=== PATIENT | male | born 1975 | race Caucasian/White ===

== ENCOUNTER 2021-10-08 14:16 | Emergency (ER) | payer MEDICAID, SELFPAY ==
[2021-10-08 14:53] VITALS: BP 119/76; PULSE 120; RESP 16; TEMP 36.8; O2SAT 95
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
[2021-10-08 15:28] LABS: MANUAL DIFF FLAG NO
[2021-10-08 15:32] LABS: Basophils Percent Auto 0.3 % (0-2); Eosinophils Absolute Auto 0.2 X10*3/uL (0.0-0.4); Eosinophils Percent Auto 1.6 % (0-4); Hematocrit 45.7 % (42.0-52.0); Hemoglobin 15.1 g/dl (14.0-18.0); Imm Gran Abs Auto 0.04 X10*3/uL (0.00-0.03); Imm Gran Pct Auto 0.4 % (0.0-0.4); Lymphocytes Absolute Auto 1.8 X10*3/uL (1.2-4.9); Lymphocytes Percent Auto 18.1 % (20-40); Mean Corpuscular Hemoglobin 29.3 pg (27.0-33.0); Mean Corpuscular Volume 88.7 fL (80.0-98.0); Monocytes Absolute Auto 1.3 X10*3/uL (0.1-1.2); Monocytes Percent Auto 13.6 % (2-11); Neutrophils Absolute Auto 6.5 x10*3/uL (2.0-8.3); Platelet Count 231 X10*3/uL (160-400); Red Blood Count 5.15 X10*6/uL (4.60-5.80); Red Cell Distribution Width 12.2 % (11.0-16.0); White Blood Count 9.9 X10*3/uL (4.8-10.8)
[2021-10-08] MEDS: LORazepam 1 MG TABLET 2 MG PO (15:33)
[2021-10-08] MEDS: Nicotine Polacrilex 2 MG GUM BUCCAL (15:33)
[2021-10-08 15:41] LABS: Appearance Urine CLEAR; Color Urine YELLOW; Glucose Urine UA NEG (NEG); Leukocyte Esterase Urine NEG (NEG); Nitrite Urine NEG (NEG); Specific Gravity - Urine >= 1.030 (1.005-1.025); Urine Blood NEG (NEG); Urine Ketones NEG (NEG); Urine Protein NEG (NEG-TRACE)
[2021-10-08 15:43] LABS: Ethanol < 10 mg/dL
[2021-10-08 15:46] LABS: Alanine Aminotransferase 12 U/L (0-40); Albumin Level 4.5 g/dL (3.5-5.0); Alkaline Phosphatase 66 U/L (39-117); Anion Gap 13 (12-20); Aspartate Amino Transferase 18 U/L (5-37); Bilirubin Total 0.4 mg/dL (0.0-1.0); Blood Urea Nitrogen 20 mg/dL (9-16); Calcium 9.3 mg/dL (8.4-10.2); Carbon Dioxide 25 mmol/L (22-29); Chloride 106 mmol/L (96-108); Creatinine Clr Calc Pharmacy 96.7; Estimated Glomerular Filt Rate > 60; Glucose Random 126 mg/dL (60-115); Sodium 140 mmol/L (135-145)
[2021-10-08 15:47] LABS: Amphetamine Screen Urine Not Detected (Not Detect); Barbiturates, Urine Not Detected (Not Detect); Benzodiazepines Screen Urine Not Detected (Not Detect); Cannabinoid Screen Urine Not Detected (Not Detect); Cocaine Screen Urine Not Detected (Not Detect); Fentanyl, urine Not Detected (Not Detect); Opiate Screen Urine Not Detected (Not Detect); Phencyclidine Screen Urine Not Detected (Not Detect)
[2021-10-08 15:52] LABS: COVID-19 Test Negative (Negative); RBC Urine 0-2 /HPF (0)
[2021-10-08 15:53] LABS: Squamous Epithelial Cell Urine TRACE /LPF
[2021-10-08 15:54] LABS: Bacteria Urine TRACE /LPF
[2021-10-08 20:17] VITALS: BP 113/66; PULSE 81; TEMP 36.5; O2SAT 100
--- NOTE | 2021-10-09 00:45 | PC.NURSE ---
Patient was observed self dialoguing whole evening, refused any offered medication, [facility] called at [phone] spoke RN Nel who notified us that patient had been off his medication for over 2 month, provider updated of new surfaced information.
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
[2021-10-09 06:18] VITALS: BP 143/92; PULSE 103; RESP 18; TEMP 37; O2SAT 98
--- NOTE | 2021-10-09 06:57 | PC.NURSE ---
patient awake and self dialoguing upon this writers arrival to unit, respirations are even and unlabored patient appears in no distress
[2021-10-09] MEDS: Nicotine Polacrilex 2 MG GUM BUCCAL ×2 (07:53→11:50)
--- NOTE | 2021-10-09 09:26 | PC.NURSE ---
client asks to take shower, getting set up for this now.
--- NOTE | 2021-10-09 10:48 | PC.NURSE ---
residence reports history of client being prescribed zyprexa as a prn but patient never took it.
[2021-10-09 12:09] VITALS: BP 120/75; PULSE 91; TEMP 36.3; O2SAT 96
--- NOTE | 2021-10-09 12:39 | MHC.CARE ---
Call to [facility] ([phone]) to arrange patient returning to facility spoke to Nursing supervisor intelligence analyst, Vance. CARE Team advised that patient has been medically cleared, evaluated by a aluminum container tester, determined to not be in need of an inpatient psychiatric admission at this time. Psychiatry is able to weigh in only regarding patient's behavior while here in the hospital. End Finder Forming Department expected to call back.
--- NOTE | 2021-10-09 12:47 | PC.NURSE ---
t/w observed patient pause before entering doorway to go into room (similar seemingly to some dementia type behavior)
--- NOTE | 2021-10-09 12:48 | PC.NURSE ---
client assessed for need?desire for anxiety medication im feeling good after the shower
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
[2021-10-09 15:31] VITALS: BP 104/82; PULSE 92; TEMP 36.8; O2SAT 98
--- NOTE | 2021-10-09 15:47 | MHC.CARE ---
CARE Team faxed clinical assessment and psychiatry notes to [facility]. 3:45 pm Received call from Dickson at facility, information reviewed and they are ready to accept patient back at any time. CARE Team to arrange transportation.
== END 2021-10-09 17:00 ==
PROVIDERS: Emergency Provider Emergency Medicine Emergency Medical Services; PCP Internal Medicine
DX: F41.9 Anxiety disorder, unspecified (principal); Z20.822 Contact with and (suspected) exposure to COVID-19; Z79.899 Other long term (current) drug therapy
CPT/HCPCS: 36415; 80053; 80307; 81001; 82077; 85025; 87635; 99284; 99285

== ENCOUNTER 2021-10-10 12:14 | Emergency (ER) | payer MEDICAID, SELFPAY ==
[2021-10-10 12:22] VITALS: BP 141/69; PULSE 95; RESP 18; TEMP 36.7; O2SAT 95; BMI 24.4
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
[2021-10-10 12:54] LABS: COVID-19 Test Negative (Negative)
[2021-10-10 14:03] VITALS: BP 135/80; PULSE 89; RESP 18; O2SAT 98
[2021-10-10 16:32] VITALS: BP 126/76; PULSE 90; RESP 16; TEMP 37.1; O2SAT 100
--- NOTE | 2021-10-10 16:42 | PC.NURSE ---
since transfer to POD4 pt has been calm, at times talking to himself and making purposless movements with hands. Was cooperative transferringto POD. Has been seen by CARE team. This RN awaits plan of care from care team. Pt is eating and drinking and able to state needs.
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
[2021-10-10 17:21] LABS: Appearance Urine CLEAR; Color Urine STRAW; Glucose Urine UA NEG (NEG); Leukocyte Esterase Urine NEG (NEG); Nitrite Urine NEG (NEG); Specific Gravity - Urine <= 1.005 (1.005-1.025); Urine Blood NEG (NEG); Urine Ketones NEG (NEG); Urine Protein NEG (NEG-TRACE)
[2021-10-10 18:27] LABS: Amphetamine Screen Urine Not Detected (Not Detect); Barbiturates, Urine Not Detected (Not Detect); Benzodiazepines Screen Urine Not Detected (Not Detect); Cannabinoid Screen Urine Not Detected (Not Detect); Cocaine Screen Urine Not Detected (Not Detect); Fentanyl, urine Not Detected (Not Detect); Opiate Screen Urine Not Detected (Not Detect); Phencyclidine Screen Urine Not Detected (Not Detect)
--- NOTE | 2021-10-11 05:50 | PC.NURSE ---
Patient slept through the night, no distress observed/reported, patient while awake does extensive self dialoguing, behavior non concerning at this time, currently not on any medication, patient was assessed by care team, no disposition established yet, will continue to monitor.
[2021-10-11 06:53] VITALS: RESP 20
--- NOTE | 2021-10-11 07:20 | PC.NURSE ---
patient appears to remain asleep at present respirationis are even and unlabored, patient appears in no distress
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
[2021-10-11] MEDS: Nicotine Polacrilex 2 MG GUM BUCCAL (11:45)
[2021-10-11 17:12] VITALS: BP 127/63; PULSE 99; RESP 18; TEMP 36.6; O2SAT 98
[2021-10-12 00:05] VITALS: BP 118/79; PULSE 114; RESP 19; TEMP 36.6; O2SAT 98
--- NOTE | 2021-10-12 06:59 | PC.NURSE ---
Patient slept through the night, no distress observed/reported, patient is a case management case, [facility], VSS, will continue to monitor.
[2021-10-12 07:30] VITALS: RESP 18
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
--- NOTE | 2021-10-12 09:41 | MHC.CM.ED ---
Patient remains in ER. Patient will not be able to return to [facility] until he has been started on anti-psychotic medications. Medication hasn't been started yet. Continue to monitor for d/c needs .
--- NOTE | 2021-10-12 13:08 | PC.NURSE ---
Patient ate lunch continues to respond to internal stimuli. Awaiting placement by case management. Will continue to monitor.
[2021-10-12 15:32] VITALS: BP 116/57; PULSE 88; TEMP 37.1; O2SAT 97
--- NOTE | 2021-10-12 21:11 | PC.NURSE ---
PT continues to self dialogue in room, responding to internal stimuli. PT able to walk out of room and request food and drink in a calm and appropriate manner. PT is redirectable but often tries to provoke others with aggressive movements and behaviors.
--- NOTE | 2021-10-12 21:25 | MHC.CARE ---
Plan for psychiatric consult regarding medication - [facility] aware Pt will not be recommended for [facility] admission. Please reference addendum from CM on 10/11/21.
[2021-10-12 23:19] VITALS: RESP 18
[2021-10-13 07:45] VITALS: RESP 18
--- NOTE | 2021-10-13 09:23 | PHA.MEDREC ---
Pharmacy Consult ? Medication Reconciliation Pharmacy has completed the medication reconciliation.
--- NOTE | 2021-10-13 10:16 | MHC.CM.ED ---
Patient remains in ER. Psych consult has not been documented. New psych meds haven't been ordered. Patient will not be able to get back to [facility] until this is done. Care Team aware and has asked for a psych consult. Continue to monitor for d/c needs.
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
[2021-10-13 19:49] VITALS: RESP 16
[2021-10-14 04:37] VITALS: RESP 16
--- NOTE | 2021-10-14 05:59 | PC.NURSE ---
Patient was up whole evening and night, lying in bed, self dialoguing intensely, preoccupied, refused Vital sign assessment, psych consult ordered for capacity assessment, M5 confirmed receipt of psych consult order, patient refused all offered medication, no update on disposition, patient is case management case, thought content paranoid, will continue to monitor.
--- NOTE | 2021-10-14 09:20 | PC.NURSE ---
pt in and out of room a few times. in room pacing and self-dialoguing, refused breakfast and everything offered by this policy writer sales. pt laying in bed quietly at this time. pt awaiting psych consult for capacity. will continue to monitor.
--- NOTE | 2021-10-14 11:31 | MHC.CM.ED ---
Pt has been cleared for INPT psych needs and can return to [facility] once he starts on antipsychotic meds pending a formal psych consult. Review of EMR notes the order is active for consult. Updated ED provider on above. CM to follow for return to [facility]
--- NOTE | 2021-10-14 13:40 | MHC.CM.PN ---
INFORMED [facility] HAS A COURT DATE FOR GUARDIANSHIP/RUSHING ORDER THIS Thursday10/18/21. THEY ARE REQUESTING ASSISTANCE WITH MED CERT AND CLINICIANS AFFIDAVIT GOLD HAS CALLED [facility] SEVERAL TIMES REQUESTING MEDICAL RECORDS FOR THIS PT. THUS FAR, NO CALLS HAVE BEEN RETURNED AND NO RECORDS HAVE BEEN RECEIVED.
[2021-10-15 06:17] VITALS: RESP 18
--- NOTE | 2021-10-15 06:41 | PC.NURSE ---
Patient slept 3 hours in total, no distress observed/reported, lying in bed, self dialoguing and preoccupied, refused Vital sign assessment, no update on disposition from the case management, effort to get Mancilla order, patient's thought content paranoid, will continue to monitor.
--- NOTE | 2021-10-15 07:24 | PC.NURSE ---
patient appears awake at present, low audble self dialogue chatter, no aggressive behavior presently patient appears in no distress.
--- NOTE | 2021-10-15 10:05 | MHC.CM.ED ---
Patient remains in ER. Anticipate patient will return to [facility] once psych consult is complete and anti-psychotic medications are ordered. Che Durant, director of case management aware. Continue to monitor for d/c needs.
--- NOTE | 2021-10-15 15:17 | MHC.CM.PN ---
This technical document writer and Florence Keller spoke re: plane of care for patient. Plan to complete Clinicians Affidavit for court on Thursday, in hope to obtain Robbin's Order. This technical document writer to [facility] Vance Damon @ [phone], attempted to ask Vance if [facility] would take patient back once Robbin's is obtained- she would not answer the questions and stated that they were very specific regarding the requirements for patient to return . Explained that patient has been in behavioral control while @ [facility], he does not meet any criteria for IPLOC or Medical Admission. Provided phone number for siebel administrator to return phone call.
[2021-10-15 23:29] VITALS: RESP 18
--- NOTE | 2021-10-16 06:12 | PC.NURSE ---
Patient slept through the night, no distress observed/reported, no self dialoguing noted, refused vital assessment as usual, no update on disposition from case management. behavior non concerning at this time, will continue to monitor.
--- NOTE | 2021-10-16 07:18 | PC.NURSE ---
patient appears to remain asleep at present respirations are even and unlabored patient appears in no distress
--- NOTE | 2021-10-17 05:01 | PC.NURSE ---
Patient slept 4 hours up since 244, no distress observed/reported, self dialoguing noted, refused vital assessment as usual, no update on disposition from case management. behavior non concerning at this time, will continue to monitor.
[2021-10-17 05:46] VITALS: RESP 18
--- NOTE | 2021-10-17 07:07 | PC.NURSE ---
patient appears to remain asleep at present respirations are even and unlabored patient appears in no distress
--- NOTE | 2021-10-17 10:40 | MHC.CM.ED ---
Patient remains in ER. Medical certificate completed by JOSE E Alegria and provided to case management office for guardianship/Robbin's order hearing on Wednesday 10/18. Continue to monitor for d/c needs.
[2021-10-17 19:10] VITALS: BP 137/83; PULSE 88; RESP 18; TEMP 36.4; O2SAT 98
[2021-10-18 01:17] VITALS: RESP 17
--- NOTE | 2021-10-18 05:40 | PC.NURSE ---
Patient slept most part of the night, currently sleeping, no distress observed/reported, self dialoguing minimal, VSS, no update on disposition from case management. behavior non concerning at this time, patient has hearing today for Mancilla/guardianship, will continue to monitor.
--- NOTE | 2021-10-18 08:36 | PC.NURSE ---
Sleeping. chest rise noted.
--- NOTE | 2021-10-18 10:02 | PC.NURSE ---
Pt has been calm. Staying in room.
[2021-10-18 14:19] LABS: COVID-19 Test Positive (Negative)
--- NOTE | 2021-10-18 14:38 | PC.NURSE ---
Pt tetsted positive for covid is now on droplet precautions
--- NOTE | 2021-10-18 15:35 | PC.NURSE ---
Patient resting comfortably in bed no c/o pain or sob. Droplet precautions in place awaiting improvement in symptoms.
--- NOTE | 2021-10-18 15:48 | MHC.CM.ED ---
Patient remains in ER. Received notification from Che Durant, showcase trimmer that court day is set for 10/25. She has been in contact with [facility] but has not received confirmation that patient can return. Received notification from pod that patient is now positive for Covid. Che schmitt. Continue to monitor for d/c needs.
--- NOTE | 2021-10-19 06:44 | PC.NURSE ---
Patient slept through the night, no distress observed/reported, no self dialoguing, COVID +, VSS, no update on disposition from case management. behavior non concerning at this time, patient court date 10/25/21 for Mancilla/guardianship, will continue to monitor.
--- NOTE | 2021-10-19 07:07 | PC.NURSE ---
patient appears to remain asleep at present respirations are even and unlabored, patient appears in no distress
[2021-10-20 06:22] VITALS: BP 128/88; PULSE 101; RESP 20; TEMP 36.2; O2SAT 97
--- NOTE | 2021-10-20 07:09 | PC.NURSE ---
patient awake at present respirations are even and unlabored patient appears in no distress declined extra blanket on approach
[2021-10-20 14:38] LABS: COVID-19 Test Negative (Negative)
[2021-10-20 16:18] VITALS: RESP 18
[2021-10-21 06:01] VITALS: RESP 20
--- NOTE | 2021-10-21 06:30 | PC.NURSE ---
Patient slept through the night, no distress observed/reported, behavior appropriate and non concerning, no self dialoguing, elimination intact, covid negative, Court date 10/25/21 for Robbin's order, VSS, will continue to monitor.
--- NOTE | 2021-10-21 07:01 | PC.NURSE ---
patient appears to remain asleep at present respirations are even and unlabored patient appears in no distress
--- NOTE | 2021-10-21 10:10 | MHC.CM.ED ---
Addendum entered by Rhoda England 10/21/21 13:52: Patient received Pfizer vaccines on : 12/28, 01/18 and 09/04. Clinical updates sent to [facility] per their request. Original Note: Patient remains in ER. Covid positive 10/18. Referral broadcasted in [employer] to all facilities within the [facility] that can accept positive Covid patients. 57 referrals made. Continue to monitor for d/c needs.
--- NOTE | 2021-10-22 07:01 | PC.NURSE ---
Patient slept through the night, no distress observed/reported, behavior appropriate and non concerning, no self dialoguing, elimination intact, covid negative, Court date 10/25/21 for Robbin's order, refused VS assessment, will continue to monitor.
--- NOTE | 2021-10-22 07:12 | PC.NURSE ---
patient appears to remain asleep at present respirations are even and unlabored patient appears in no distress
--- NOTE | 2021-10-22 08:27 | MHC.CM.ED ---
Patient remains in ER. Patient is a LTC resident of [facility]. Covid positive 10/18. Court scheduled for 10/25 for guardianship and Robbin's order. 57 Referrals have been broadcasted in Allscripts. No bed offers made. Che Durant, director of case management aware. Continue to monitor for d/c needs.
[2021-10-22 18:40] VITALS: BP 125/73; PULSE 86; TEMP 36.4; O2SAT 95
[2021-10-23 05:12] VITALS: BP 127/84; PULSE 90; RESP 17; TEMP 36.4; O2SAT 100
--- NOTE | 2021-10-23 07:29 | PC.NURSE ---
patient appeared to remain asleep at begin of shift now quietly self dialoguing to self in room. patient appears in no distress.
--- NOTE | 2021-10-23 10:25 | MHC.CM.ED ---
Patient remains in ER. Patient is a resident of [facility]. Court for guardianship and Robbin's order is scheduled for 10/25. On 10/18, patient tested positive for Covid. Referral broadcasted with the [facility] to all facilities that are accepting positive Covid patients. No bed offers made yet. Che Durant aware and has escalated to [facility]. Continue to monitor for d/c needs.
--- NOTE | 2021-10-23 14:36 | MHC.CM.PN ---
This commercial insurance underwriter placed email to Tai Barraza for any follow-up regarding patient case. Awaiting return response. Will continue to follow.
--- NOTE | 2021-10-23 15:35 | PC.NURSE ---
late entry: to note from day shift 10/22/21 patient took a shower mid day and also made his own bed afterwards.
[2021-10-23 15:54] VITALS: BP 118/72; PULSE 83; RESP 18; TEMP 36.8; O2SAT 97
[2021-10-24 05:58] VITALS: BP 135/76; PULSE 88; RESP 12; TEMP 36.7; O2SAT 100
--- NOTE | 2021-10-24 06:33 | PC.NURSE ---
Patient slept through the night, no distress observed/reported, behavior appropriate and non concerning, self dialoguing towards morning, elimination intact, covid negative, Court date 10/25/21 for Robbin's order, VSS, will continue to monitor.
--- NOTE | 2021-10-24 08:30 | PC.NURSE ---
Pt has been awake. SKin pwd, sat up to eat. Self talk when not engaged. Pt able to state needs. Reports that he showered last night. No foul odors in room. Self talk theme for short period is boredom .
[2021-10-24 14:03] VITALS: BP 126/78; PULSE 84; RESP 18; TEMP 36.8; O2SAT 98
[2021-10-24 14:28] LABS: COVID-19 Test Negative (Negative)
--- NOTE | 2021-10-24 16:11 | MHC.CM.ED ---
Patient served with guardianship court date of 10/25/2021.
--- NOTE | 2021-10-24 17:41 | PC.NURSE ---
Pt has kept mostly to his room throughout the day. Has not been incontinent. APpears to request fluids. During brief interactions with this RN patient is able to state needs, denies dyscomfort. Is steady on feet. Self talk at almost all times unless approached by staff. No aggressive or threatening behaviors.
[2021-10-25 03:37] VITALS: BP 141/89; PULSE 111; RESP 16; TEMP 36.1; O2SAT 98
--- NOTE | 2021-10-25 06:18 | PC.NURSE ---
Patient slept through the night, no distress observed/reported, behavior appropriate and non concerning, minima self dialoguing, elimination intact, covid negative, Court date today (10/25/21) for Robbin's order, VSS, will continue to monitor.
--- NOTE | 2021-10-25 08:06 | PC.NURSE ---
pt went to the bathroom w the door open. i shut the door and pt became alittle upset but was able to explain that he was claustrophobic and apologized. I suggested that he partially close the door so that he feels ok and that their is privacy
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
[2021-10-25 15:29] VITALS: BP 136/80; PULSE 91; TEMP 36.8; O2SAT 98
--- NOTE | 2021-10-25 18:35 | PC.NURSE ---
Pt had a shower and ate lunch awaiting results from odalis moreno
[2021-10-25 20:06] VITALS: BP 149/80; PULSE 111; RESP 18; TEMP 36.2; O2SAT 100
[2021-10-26 05:39] VITALS: RESP 18
--- NOTE | 2021-10-26 06:13 | PC.NURSE ---
Patient slept through the night, no self dialoguing, behavior appropriate and non concerning, patient had a court date for Laurent yesterday no update, will continue to monitor.
[2021-10-26 07:28] VITALS: BP 145/75; PULSE 91; RESP 16; TEMP 36.9; O2SAT 97
--- NOTE | 2021-10-26 09:42 | PC.NURSE ---
pt continues to have a conversation with himself. denies any pain/disc. pt states that if he needs us he will let us know.
--- NOTE | 2021-10-26 18:04 | PC.NURSE ---
Patient alert with pleasant confusion. ate 100% of meals this shift awaiting results from meeting yesterday regarding a howe order for patient. No c/o pain or discomfort, will continue to monitor.
[2021-10-27 04:56] VITALS: BP 118/67; PULSE 74; RESP 18; TEMP 36.2; O2SAT 98
--- NOTE | 2021-10-27 06:35 | PC.NURSE ---
PT appears to be sleeping on safety checks. Up once to use the BR and to eat a sandwich. PT self dialogues at times. PT calm and cooperative.
[2021-10-27 16:06] VITALS: BP 150/75; PULSE 86; RESP 16; TEMP 36.8; O2SAT 96
--- NOTE | 2021-10-27 16:46 | PC.NURSE ---
Patient resting comfortably in bed awaiting results from carley mcclure
[2021-10-28 06:38] VITALS: RESP 20
--- NOTE | 2021-10-28 06:41 | PC.NURSE ---
Patient slept through the night, no self dialoguing, behavior appropriate and non concerning, No news on patient's Mancilla order status, Refused VS assessment, will continue to monitor.
--- NOTE | 2021-10-28 07:06 | PC.NURSE ---
patient appears to remain asleep at present respirations are even and unlabored patient appears in no distress
--- NOTE | 2021-10-29 05:56 | PC.NURSE ---
Patient slept through the night, no self dialoguing, behavior appropriate and non concerning, No update on patient's Mancilla order status, VSS, will continue to monitor.
--- NOTE | 2021-10-29 07:10 | PC.NURSE ---
patient appears to remain asleep at present respirations are even and unlabored patient appears in no distress
[2021-10-29 16:48] VITALS: BP 138/80; PULSE 95; RESP 18; TEMP 36.3; O2SAT 100
[2021-10-29] MEDS: Nicotine Polacrilex 2 MG GUM BUCCAL (18:18)
--- NOTE | 2021-10-30 05:59 | PC.NURSE ---
Patient slept through the night, extensive self dialoguing, behavior appropriate and non concerning, No update on patient's Mancilla order status, VSS, will continue to monitor.
[2021-10-30 06:53] VITALS: RESP 20
--- NOTE | 2021-10-30 09:28 | PC.NURSE ---
pt given breakfast. pt has not come out of room since this headline writer arriving on shift, he refused vitals. pt in room self-dialoguing, no issues noted/reported. will continue to monitor.
--- NOTE | 2021-10-30 10:13 | MHC.CM.PN ---
This customs entry writer received communication from state discharge planning team. Patient is still unable to return to [facility] and the team is working on alternate placement. Awaiting guardianship and Robbin's orders from the court. Case Management will continue to follow.
--- NOTE | 2021-10-30 14:20 | MHC.CM.ED ---
Referral made to [facility] at Che Durant's request. Continue to monitor for d/c needs.
[2021-10-30 16:38] VITALS: BP 119/73; PULSE 97; TEMP 36.9; O2SAT 97
--- NOTE | 2021-10-31 06:39 | PC.NURSE ---
Patient slept through the night, behavior appropriate and non concerning, awaiting Mancilla order from the court, VSS, will continue to monitor.
[2021-10-31 06:47] VITALS: BP 105/62; PULSE 80; RESP 17; TEMP 36.6; O2SAT 99
--- NOTE | 2021-10-31 07:17 | PC.NURSE ---
patient appears to remain asleep at present respirations are even and unlabored, patient appears in no distress
[2021-10-31 21:34] VITALS: BP 117/74; PULSE 76; TEMP 36.2; O2SAT 97
--- NOTE | 2021-11-01 06:45 | PC.NURSE ---
PT appeared to be asleep on safety checks, PT calm and cooperative when he woke up for a snack.
--- NOTE | 2021-11-01 11:38 | PC.NURSE ---
Patient awake, dialoguing in room. Briefly assessed, encouraged to use the bathroom and shower, offered to change linens. Patient stated 'can you please close the door, it stinks in here...' and stated he would shower later I shower every day, you can check the notes, please close the door.'
--- NOTE | 2021-11-01 14:40 | PC.NURSE ---
Patient out of bed to shower, linens changed- pt incontinent of urine.
--- NOTE | 2021-11-01 15:31 | MHC.CM.ED ---
Patient remains in ER. No bed offers made yet. Per Che, [facility] will not accept patient back. [facility] has been escalated. Continue to monitor for d/c needs.
--- NOTE | 2021-11-01 18:10 | PC.NURSE ---
PATIENT RESTING COMFORTABLY IN BED AWAITING RUSHING ORDER AND DETERMINATION FOR PLACEMENT, WAS GIVEN A SHOWER AND ROOM WAS CLEANED.
--- NOTE | 2021-11-02 05:58 | PC.NURSE ---
Patient slept through the night, behavior appropriate and non concerning, awaiting Mancilla order from the court, patient is now case management bed search, VSS, will continue to monitor.
[2021-11-02 06:18] VITALS: BP 117/62; PULSE 74; RESP 18; TEMP 36.4; O2SAT 98
--- NOTE | 2021-11-02 07:13 | PC.NURSE ---
patient appears to remain asleep at present respirations are even and unlabored patient appears in no distress
[2021-11-02 15:44] VITALS: BP 132/90; PULSE 87; RESP 18; TEMP 36.6; O2SAT 99
--- NOTE | 2021-11-03 06:14 | PC.NURSE ---
Patient slept through the night, behavior appropriate and non concerning, awaiting Mancilla order from the court, patient is now case management bed search, refused VS assessment, will continue to monitor.
--- NOTE | 2021-11-03 07:19 | PC.NURSE ---
patient appears to remain asleep at present respirations are even and unlabored patient appears in no distress
[2021-11-03 17:01] VITALS: BP 118/78; PULSE 69; RESP 20; TEMP 36.5; O2SAT 97
[2021-11-04 00:59] VITALS: BP 152/98; PULSE 75; RESP 20; TEMP 36.5; O2SAT 97
--- NOTE | 2021-11-04 07:05 | PC.NURSE ---
patient awake at present, calling out periodically, declined breakfast, respirations even and unlabored patient appears in no distress, primarily remains in room of his own accord.
--- NOTE | 2021-11-04 10:22 | MHC.CM.ED ---
Patient remains in the ER. Denied by [facility]. Referral sent to [facility], [facility] and Richard Johansen at [facility]'s recommendation. Continue to monitor for d/c needs.
[2021-11-04 15:57] VITALS: BP 127/84; PULSE 91; RESP 16; TEMP 36.6; O2SAT 99
[2021-11-05 06:18] VITALS: RESP 17
--- NOTE | 2021-11-05 07:12 | PC.NURSE ---
patient appears to mreain asleep at present respirations are even and unlabored patient appears in no distress
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
[2021-11-06 06:32] VITALS: BP 136/83; PULSE 97; RESP 20; TEMP 36.2; O2SAT 97
--- NOTE | 2021-11-06 07:00 | PC.NURSE ---
Patient slept through the night, behavior escalating, actively responding to internal stimuli, Mancilla order in place, case management bed search, VSS, will continue to monitor.
--- NOTE | 2021-11-06 07:27 | PC.NURSE ---
patient appears to remain asleep at present respirations are even and unlabored patient appears in no distress
--- NOTE | 2021-11-06 08:49 | MHC.CM.ED ---
Addendum entered by Rhoda England 11/06/21 09:01: Clinical updates sent to [facility], per their request. Original Note: Patient remains in ER. [facility] is sceheduled to have a meeting with [facility] today. T/W spoke elizabeth Morales at [facility]. Carmen confirmed they have received all of the clinical info sent by [facility]. Continue to monitor for d/c needs.
[2021-11-06] MEDS: Nicotine Polacrilex 2 MG GUM BUCCAL (16:39)
[2021-11-06 17:06] VITALS: BP 117/69; PULSE 86; RESP 18; TEMP 36.1; O2SAT 97
--- NOTE | 2021-11-07 05:12 | PC.NURSE ---
Patient slept through the night, behavior calm this shift, no self dialoguing, Laurent order in place, case management bed search, VSS, will continue to monitor.
[2021-11-07 05:53] VITALS: BP 139/83; PULSE 102; RESP 20; TEMP 36.9; O2SAT 98
--- NOTE | 2021-11-07 15:01 | MHC.CM.ED ---
Patient remains in ER. Che has not heard from [facility] about meeting with [facility]. T/W spoke with [facility] liasion, Yahaira. Yahaira is waiting to hear from the building to see if they will accept patient back. Continue to monitor for d/c needs.
--- NOTE | 2021-11-07 18:29 | PC.NURSE ---
Patient refused vital signs, states he is meditating and not to bother him. States he will allow vital signs after he is done meditating and using restroom.
--- NOTE | 2021-11-08 05:22 | PC.NURSE ---
Patient slept through the night, no distress observed/reported, less self dialoguing, expressing need well, case management actively searching bed, showered in the evening, VSS, will continue to monitor.
[2021-11-08 06:16] VITALS: RESP 20
--- NOTE | 2021-11-08 08:39 | PC.NURSE ---
this technical writer assumed care of pt at 0700. breakfast given but pt did not eat. pt sleeping, no issues noted/reported. will continue to monitor.
--- NOTE | 2021-11-08 11:15 | MHC.CM.ED ---
[facility] inquiring on antipsychotic medications for pt: pt is not actively on any : nursing documentation supports non concerning behaviors. Information relayed to Yahaira at [facility]: awaiting further communication from facility
--- NOTE | 2021-11-08 12:06 | PC.NURSE ---
pt in room resting quietly. no incidents noted/reported. will continue to monitor.
--- NOTE | 2021-11-08 15:06 | MHC.CM.ED ---
Correspondence with Yahaira at [facility]: Yahaira inquiring on pt's initiation of anti psychotic meds now that he has a Mancilla order: pt not on any per MAR and upon review of RN notes, pt has not exhibited adverse behaviors that necessitated initiation of such meds. Awaiting [facility]'s determination on accepting pt back. CM Director aware of situation.
--- NOTE | 2021-11-09 06:03 | PC.NURSE ---
Patient slept through the night, no distress observed/reported, less self dialoguing, expressing need well, case management actively searching bed, VSS, will continue to monitor
--- NOTE | 2021-11-09 11:21 | PC.NURSE ---
PATIENT RESTING IN ROOM DENIES ANY PAIN OR DISCOMFORT AT THIS TIME. AWAITING CASE MANAGEMENT
[2021-11-09 15:40] VITALS: BP 119/74; PULSE 73; RESP 15; TEMP 36.2; O2SAT 99
[2021-11-10 00:53] VITALS: BP 131/74; PULSE 100; RESP 20; TEMP 36.7; O2SAT 95
--- NOTE | 2021-11-10 05:04 | PC.NURSE ---
Patient slept through the night, no distress observed/reported, self dialoguing, expressing need well, showered during overnight shift bladder accident, case management actively searching bed, VSS, will continue to monitor
--- NOTE | 2021-11-10 10:27 | PC.NURSE ---
Pt in and out of room today. Talking to internal stimuli. Pt not aggressive towards staff and requests things appropriately. Pt resting in bed in room. no apparent distress noted.
--- NOTE | 2021-11-10 13:18 | PC.NURSE ---
PATIENT ALERT AND COOPERATIVE CONTINUES TO RESPOND TO INTERNAL STIMULI. AWAITING PLACEMENT
[2021-11-10 15:33] VITALS: BP 138/94; PULSE 94; RESP 16; TEMP 36.5; O2SAT 97
--- NOTE | 2021-11-11 06:55 | PC.NURSE ---
Patient slept through the night, no distress observed/reported, no self dialoguing, expressing need well, case management actively searching bed, VSS, will continue to monitor
--- NOTE | 2021-11-11 10:14 | MHC.CM.ED ---
Inquiry to [facility] via [employer] re: pt's ability to return to facility now that the Mancilla order is available for use should they deem it necessary. Pt has not been started on antipsychotic meds as his behaviors have been controlled or easily mitigated without medications. Awaiting response from [facility]
[2021-11-11 17:36] VITALS: BP 112/74; PULSE 78; RESP 18; TEMP 36.3; O2SAT 97
[2021-11-12 01:13] VITALS: RESP 20; TEMP 36.4; O2SAT 98
[2021-11-12] MEDS: Nicotine Polacrilex 2 MG GUM BUCCAL (04:25)
--- NOTE | 2021-11-12 06:42 | PC.NURSE ---
Patient slept through the night, no distress observed/reported, no self dialoguing, expressing need well, case management actively searching bed, PRN Olanzapine offered but patient refused, VSS, will continue to monitor
--- NOTE | 2021-11-12 07:15 | PC.NURSE ---
patient appears to remain asleep at [facility] respirations are even and unlabored patrient appears in no distress
--- NOTE | 2021-11-12 09:36 | MHC.CM.ED ---
Addendum entered by Rhoda England 11/12/21 12:29: Benji will be on-site until 3-4ish. Original Note: Patient remains in ER. Per [facility]air[facility] liaison, Benji will be on site to visit patient today. Continue to monitor for d/c needs.
--- NOTE | 2021-11-12 16:23 | MHC.CM.ED ---
Benji from [facility] on site to visit patient. Benji met with case management and January of Care team. Benji is concerned that patient is not stable because of increased internal stimuli. Benji is also concerned that patient has a Robbin's order but no medication has been ordered. January will reach out to [employer] school psychologist to discuss concerns. Continue to monitor for d/c needs,
--- NOTE | 2021-11-12 21:02 | PC.NURSE ---
Patient refused medication with three attempts
--- NOTE | 2021-11-13 06:11 | PC.NURSE ---
Patient slept through the night, no distress observed/reported, no self dialoguing, expressing need well, case management actively searching bed, Refused scheduled Olanzapine, behavior in good control, VSS, will continue to monitor
--- NOTE | 2021-11-13 07:09 | PC.NURSE ---
patient appears to remain asleep at present respirations are even and unalbored patient appears in no distress
[2021-11-14 06:26] VITALS: BP 125/72; PULSE 91; TEMP 36.6; O2SAT 98
--- NOTE | 2021-11-14 06:37 | PC.NURSE ---
Patient slept well, no distress observed/reported, patient's medication now changed to Resperidone 1 mg BID, patient as usual refused to take his medication, behavior at baseline line, patient is case management bed search, will continue to monitor.
--- NOTE | 2021-11-14 07:09 | PC.NURSE ---
patient appears to remain asleep at present respirations are even and unlabored patient appears in no distress
--- NOTE | 2021-11-14 08:57 | PC.NURSE ---
sent message to josh in regards to backup order for med noncompliance
[2021-11-14] MEDS: Nicotine Polacrilex 2 MG GUM BUCCAL (11:29)
--- NOTE | 2021-11-15 06:25 | PC.NURSE ---
Patient slept well, no distress observed/reported, Refused HS Resperidone 1 mg, behavior at baseline line and non concerning at this time, refused VS assessment, patient is case management bed search, will continue to monitor.
--- NOTE | 2021-11-15 14:24 | MHC.CM.ED ---
Patient remains in ER. Risperidal is ordered but patient has refused PO. Che Durant, director of casework department aware. [facility] has not accepted patient back at this time. Continue to monitor for d/c needs.
--- NOTE | 2021-11-15 16:09 | PC.NURSE ---
Attempted x 2 to give meds to patient. Patient refused x 2.
[2021-11-15 21:33] VITALS: BP 137/82; PULSE 97; RESP 16; TEMP 36.6; O2SAT 100
[2021-11-16 05:54] VITALS: RESP 16
--- NOTE | 2021-11-16 06:30 | PC.NURSE ---
Patient slept well, no distress observed/reported, Refused HS Resperidone 1 mg again despite three attempts, behavior at baseline line and non concerning at this time, refused VS assessment, patient is case management bed search, will continue to monitor.
--- NOTE | 2021-11-16 06:55 | PC.NURSE ---
patient appears to remain asleep at present respirations are even and unlabored, patient appears in no distress
[2021-11-16] MEDS: Nicotine Polacrilex 2 MG GUM BUCCAL (09:20)
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
[2021-11-16] MEDS: LORazepam 1 MG TABLET PO (17:34)
--- NOTE | 2021-11-16 18:50 | PC.NURSE ---
late entry: patient was interviewed by Dr. Jerome in regards to med regimen to stabilize patients psychotic symptoms. provider indicated to me patient had made statements to him, you can read my mind and elephants and mice go to heaven . during pt interview laurie states that client had told Airam that he had been on risperdal before (patient was asked risperdal and risperidone) and client stated he hadnt. it seems (from what dr jerome said) that with this discrepancy starting client on local intermodal truck driver injectable (like consta) would not be prudent at this time. later in the afternoon patient seemed more stimulated than recent behavior and t/w asked client about interest in ativan to help him feel calmer. client stated he would like this and a onetime order was pursued from covering provider Caitlin Brink.
[2021-11-17 01:40] VITALS: BP 146/84; PULSE 91; RESP 17; TEMP 36.6; O2SAT 95
--- NOTE | 2021-11-17 05:16 | PC.NURSE ---
Patient slept total seven hours, no distress observed/reported, compliant with vital sign assessment, refused to take his HS risperidone as usual, expressing need well, thought process coherent, engages in extensive self dialoguing when awake and alone in his room, behavior non concerning at this time, had one episode bladder incontinence, patient showered independently, disposition is case management bed search, will continue to monitor.
--- NOTE | 2021-11-17 07:06 | PC.NURSE ---
patient appears to remain asleep at present respirations are even and unlabored, patient appears in no distress
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
--- NOTE | 2021-11-17 13:03 | PC.NURSE ---
patient maintains safe behavior, when awake self dialoguing in his room/bed with periodic moments of laughter.
[2021-11-17 21:49] VITALS: BP 124/79; PULSE 87; RESP 18; TEMP 36.1; O2SAT 97
--- NOTE | 2021-11-18 05:05 | PC.NURSE ---
Patient slept through the night, no distress observed/reported, patient refused his bedtime Risperidone as usual, stated medication makes him drowsy, refused vital assessment, out of room times one refreshed/snacked back to his room, behavior at base line coherent, non concerning, no self dialoguing during overnight shift, expressing need well, will continue to monitor.
[2021-11-18 07:52] VITALS: BP 139/77; PULSE 79; RESP 16; TEMP 36.2; O2SAT 100
--- NOTE | 2021-11-18 09:30 | MHC.CM.ED ---
Patient remains in ER. Meeting planned for 11am today with [facility], [facility] and [facility] to discuss plan for discharge. Continue to monitor for d/c needs.
--- NOTE | 2021-11-18 10:42 | PC.NURSE ---
pt is a/o no sob/dionicio noted. pt has adamantly refused his am med. pt states that if he takes his med he will not be able to meditate pt at times appears to express manic thoughts/rambling.
--- NOTE | 2021-11-18 11:24 | PC.NURSE ---
pt took a long shower, pt's room was cleaned by housekeeping (floor cleansed and bed lining changed).
[2021-11-19 05:42] VITALS: RESP 20
--- NOTE | 2021-11-19 06:02 | PC.NURSE ---
Patient slept through the night, no distress observed/reported, patient refused his bedtime Risperidone as usual, refused vital assessment, behavior at base line coherent, non concerning, no self dialoguing during overnight shift, expressing need well, will continue to monitor.
--- NOTE | 2021-11-19 07:06 | PC.NURSE ---
patient appears to remain asleep at present respirations are even and unlabored patient appears in no distress
--- NOTE | 2021-11-19 11:44 | PC.NURSE ---
patient asked appropriate questions regarding purpose of risperdal. t/w told him it was for if he felt suspicious or agitated. patient requested clarification on what suspicious meant and I gave clarification on that. patient also requested ativan and i told him i would pursue that if he were looking for it.
--- NOTE | 2021-11-19 11:46 | MHC.CM.ED ---
Addendum entered by Rhoda England 11/19/21 15:49: [facility] is not able to offer a bed. Original Note: Patient remains in ER. Meeting with [facility], [facility] and [facility] was done via telephone on 11/18. [facility] does not feel he is stable enough to return. Patient has not been exhibiting any behaviors while in ER. [facility] is still trying to pursue [facility] for placement. [facility] leadership is aware. Referral resent to [facility] at Che Durant's request. Continue to monitor for d/c needs.
--- NOTE | 2021-11-20 06:39 | PC.NURSE ---
Patient slept through the night, no distress observed/reported, patient refused his bedtime Risperidone as usual, refused vital assessment, behavior at base line coherent, non concerning, no self dialoguing, will continue to monitor.
--- NOTE | 2021-11-20 07:23 | PC.NURSE ---
patient appears to remain asleep at present respirations are even and unlabored patient appears in no distress
--- NOTE | 2021-11-20 08:41 | MHC.CM.ED ---
Patient remains in ER pod. No placement options at this time. [facility], [facility] and [facility] trying to find appropriate d/c plan. None available at this time. Continue to monitor for d/c needs.
[2021-11-20] MEDS: Nicotine Polacrilex 2 MG GUM BUCCAL ×2 (12:19→17:14)
[2021-11-20 15:35] VITALS: BP 147/80; PULSE 93; RESP 20; TEMP 36.1; O2SAT 98
[2021-11-21 05:07] VITALS: RESP 18
--- NOTE | 2021-11-21 06:00 | PC.NURSE ---
Patient slept through the night, no distress observed/reported, patient refused his bedtime Risperidone as usual, refused vital assessment, behavior at base line coherent, non concerning, patient did brief self dialoguing, no update on bed search, will continue to monitor.
--- NOTE | 2021-11-21 09:26 | PC.NURSE ---
pt refused am medication/vitals, inappropriate urination in room/bathroom, periodic erratic behaviour, when staff enters pt room he becomes agitated/aggressive.
--- NOTE | 2021-11-21 14:38 | MHC.CM.PN ---
Multidisciplinary meeting held with care team @ [facility]. [facility] obtained records from [facility]. At this time plan is for care team to have discussion with patient around importance of taking prescribed antipsychotics. [facility] will also engage in follow-up meeting with [facility] re: next step plans. This check writer will make additional attempts to contact guardian. Will continue to monitor.
--- NOTE | 2021-11-22 06:33 | PC.NURSE ---
Patient slept through the night, no distress observed/reported, patient refused his bedtime Risperidone, refused vital assessment, behavior at base line coherent, non concerning, no self dialoguing, no update on bed search, will continue to monitor.
--- NOTE | 2021-11-22 07:15 | PC.NURSE ---
patient appears to remain at rest at present respirations are evn and unlabored patient appears in no distress
--- NOTE | 2021-11-22 15:24 | PC.NURSE ---
DR. Villalobos came in to see patient with care team no new orders at this time
[2021-11-22] MEDS: risperiDONE 0.5 MG TABLET PO (18:09)
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
[2021-11-22 21:09] VITALS: BP 145/77; PULSE 116; RESP 17; O2SAT 98
--- NOTE | 2021-11-23 06:16 | PC.NURSE ---
Patient slept through the night, no distress observed/reported, refused vital assessment, behavior at base line, coherent, non concerning, no self dialoguing, no update on bed search from case management, expressing need well, appetite good, Robbin's order copy in chart, Respridone order changed from 1 mg BID to 0.5 mg daily with january crush order from Dr. Bautista, will continue to monitor.
[2021-11-23 06:36] VITALS: BP 130/76; PULSE 78; RESP 18; O2SAT 97
--- NOTE | 2021-11-23 10:52 | PC.NURSE ---
Patient ate breakfast and room was cleaned. alert and cooperative with no c/o at this time. will continue to monitor.
[2021-11-23] MEDS: Nicotine Polacrilex 2 MG GUM BUCCAL (17:41)
[2021-11-23] MEDS: risperiDONE 0.5 MG TABLET PO (18:12)
[2021-11-23 19:24] VITALS: BP 123/81; PULSE 107; RESP 20; TEMP 36.6; O2SAT 97
--- NOTE | 2021-11-24 05:52 | PC.NURSE ---
Patient slept through the night, no distress observed/reported, refused vital assessment, behavior pleasant and appropriate, coherent, no self dialoguing, no update on bed search from case management, expressing need well, appetite good, will continue to monitor.
[2021-11-24 13:45] VITALS: BP 108/57; PULSE 86; RESP 15; TEMP 36.8; O2SAT 99
[2021-11-24 13:50] LABS: MANUAL DIFF FLAG NO
[2021-11-24 13:55] LABS: Basophils Percent Auto 0.3 % (0-2); Eosinophils Absolute Auto 0.3 X10*3/uL (0.0-0.4); Eosinophils Percent Auto 4.7 % (0-4); Hematocrit 45.2 % (42.0-52.0); Hemoglobin 14.8 g/dl (14.0-18.0); Imm Gran Abs Auto 0.02 X10*3/uL (0.00-0.03); Imm Gran Pct Auto 0.3 % (0.0-0.4); Lymphocytes Absolute Auto 2.1 X10*3/uL (1.2-4.9); Lymphocytes Percent Auto 30.4 % (20-40); Mean Corpuscular HGB Conc 32.7 g/dl (31.0-36.0); Mean Corpuscular Hemoglobin 28.8 pg (27.0-33.0); Mean Corpuscular Volume 88.1 fL (80.0-98.0); Monocytes Absolute Auto 0.9 X10*3/uL (0.1-1.2); Monocytes Percent Auto 13.2 % (2-11); Neutrophils Absolute Auto 3.6 x10*3/uL (2.0-8.3); Neutrophils Percent Auto 51.1 % (45-73); Platelet Count 206 X10*3/uL (160-400); Red Blood Count 5.13 X10*6/uL (4.60-5.80); Red Cell Distribution Width 12.7 % (11.0-16.0)
[2021-11-24 15:32] LABS: Alanine Aminotransferase 20 U/L (0-40); Albumin Level 4.2 g/dL (3.5-5.0); Alkaline Phosphatase 65 U/L (39-117); Anion Gap 14 (12-20); Aspartate Amino Transferase 17 U/L (5-37); Bilirubin Total 0.5 mg/dL (0.0-1.0); Blood Urea Nitrogen 16 mg/dL (9-16); Calcium 9.4 mg/dL (8.4-10.2); Carbon Dioxide 25 mmol/L (22-29); Chloride 106 mmol/L (96-108); Creatinine Clr Calc Pharmacy 103.2; Estimated Glomerular Filt Rate > 60; Glucose Random 89 mg/dL (60-115); Magnesium 2.2 mg/dL (1.6-2.6); Potassium 4.9 mmol/L (3.3-5.1); Sodium 140 mmol/L (135-145); Total Protein 7.2 g/dL (6.5-8.0)
[2021-11-24 16:58] LABS: Appearance Urine CLEAR; Color Urine STRAW; Glucose Urine UA NEG (NEG); Leukocyte Esterase Urine NEG (NEG); Nitrite Urine NEG (NEG); Urine Blood NEG (NEG); Urine Ketones NEG (NEG); Urine Protein NEG (NEG-TRACE)
[2021-11-24 17:29] LABS: Amphetamine Screen Urine Not Detected (Not Detect); Barbiturates, Urine Not Detected (Not Detect); Benzodiazepines Screen Urine Not Detected (Not Detect); Cannabinoid Screen Urine Not Detected (Not Detect); Cocaine Screen Urine Not Detected (Not Detect); Fentanyl, urine Not Detected (Not Detect); Opiate Screen Urine Not Detected (Not Detect); Phencyclidine Screen Urine Not Detected (Not Detect)
[2021-11-24] MEDS: risperiDONE 0.5 MG TABLET PO (18:24)
[2021-11-25 05:41] VITALS: RESP 16
--- NOTE | 2021-11-25 06:40 | PC.NURSE ---
Patient slept through the night, no distress observed/reported, refused vital assessment, behavior restless towards morning, coherent but thought content paranoid, self dialoguing, no update on bed search from case management, expressing need well, appetite good, will continue to monitor.
--- NOTE | 2021-11-25 07:28 | PC.NURSE ---
patient appaears to remain relaxed at present has been awake since arrival to unit making some undecipherable sounds as is his regular pattern in early childhood associate, respirations even and unlabored patient appears in no distress
--- NOTE | 2021-11-25 08:38 | MHC.CM.ED ---
Patient remains in ER. Was seen by Dr Villalobos of psych on 11/22. Risperidal 0.5mg po was ordered daily at dinner time. At this time, patient has taken 3 doses. Continue to monitor for d/c needs.
[2021-11-25 17:01] VITALS: RESP 18
[2021-11-25] MEDS: risperiDONE 0.5 MG TABLET PO (18:26)
[2021-11-25 23:39] VITALS: BP 120/58; PULSE 110; RESP 16; O2SAT 96
--- NOTE | 2021-11-26 06:35 | PC.NURSE ---
Patient slept through the night, no distress observed/reported, compliant with vital assessment, behavior non concerning, no self dialoguing, no update on bed search from case management, expressing need well, appetite good, Risperidone 1 mg BID is new order, changed to will continue to monitor.
[2021-11-26] MEDS: Nicotine Polacrilex 2 MG GUM BUCCAL (07:30)
--- NOTE | 2021-11-26 07:35 | PC.NURSE ---
patient appears to remain asleep at present respirations are even and unlabored patient appears in no distress
--- NOTE | 2021-11-26 10:21 | MHC.CM.PN ---
This advertising copy writer spoke with patient's guardian, Anabella Schultz. Updated her regarding patient's current plan of care. She is in agreement. Will continue to update Anabella with any new updates.
--- NOTE | 2021-11-26 10:38 | MHC.CM.ED ---
Patient remains in ER pod. Risperdal was increased to 1mg BID on 11/26. Patient has been compliant with this med at this time. Continue to monitor for d/c needs.
--- NOTE | 2021-11-26 11:35 | PC.NURSE ---
patient declined med when approached. prior to approach this client stated i dont like that med makes me feel depressed clients med put in a sandwich per order, client has requested no food as yet today.
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
[2021-11-26] MEDS: risperiDONE 1 MG TABLET PO ×2 (14:29→18:18)
--- NOTE | 2021-11-26 14:34 | PC.NURSE ---
client consumed sandwich with risperdal in it per order.
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
--- NOTE | 2021-11-27 06:37 | PC.NURSE ---
Patient slept through the night, no distress observed/reported, non compliant with vital assessment, behavior non concerning, no self dialoguing, no update on bed search from case management, expressing need well, appetite good, will continue to monitor.
--- NOTE | 2021-11-27 07:22 | PC.NURSE ---
patient appears to remain asleep at present respirations are evn and unlabored patient appears in no distress
--- NOTE | 2021-11-27 15:03 | PC.NURSE ---
patient has not taken or requested any foods as yet today, unable to medicate patient
[2021-11-27] MEDS: risperiDONE 1 MG TABLET PO ×2 (16:55→18:25)
--- NOTE | 2021-11-27 17:01 | PC.NURSE ---
discussed dosing scheduling with BHARGAV provider for currently. did administer one dose within the last hour and will endeavor to give second dose in/with dinner, should be about 1820 today.
[2021-11-27 21:13] VITALS: BP 119/82; PULSE 91; RESP 17; TEMP 36.6; O2SAT 99
--- NOTE | 2021-11-28 05:53 | PC.NURSE ---
Patient slept through the night, no distress observed/reported, non compliant with vital assessment, behavior non concerning, patient had a brief episode of self dialoguing in the evening but was quiet overnight, no update on bed search from case management, expressing need well, appetite good, will continue to monitor.
--- NOTE | 2021-11-28 07:08 | PC.NURSE ---
Care assumed at this time, report from Nikolas CORMIER. Pt sleeping at this time, resp reg and even, NAD.
--- NOTE | 2021-11-28 08:38 | MHC.CM.ED ---
Addendum entered by Rhoda England 11/28/21 08:42: Risperdal was increased on 11/26. Original Note: Patient remains in ER BH pod. Rispderal was increased to 1mg PO twice a day. It is scheduled for 730am and 530pm. Patient has received 2 doses a day since then. But not necessarily at the scheduled times. There is a daily PRN Risperdal order as well. No PRN Rispdeal has been given. There is a tentative plan to start injections of a long acting medication on Thursday. [facility], [facility] and [facility] leadership continues to be in communication about d/c plan. Continue to monitor for d/c needs.
--- NOTE | 2021-11-28 15:39 | PC.NURSE ---
Pt requesting shower, provided with shower supplies.
--- NOTE | 2021-11-28 15:46 | PC.NURSE ---
Pt noted to be vigorously self dialoguing at this time. Pt moved his bowels on shower floor.
[2021-11-28 16:56] VITALS: BP 157/92; PULSE 113; RESP 20; TEMP 37.2; O2SAT 96
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
--- NOTE | 2021-11-28 18:18 | MHC.CM.ED ---
Per Che Durant-Plan of care includes:1. Pt to receive an IM long acting medication on Thursday. 2. A collaborative meeting with , [facility] and [facility] on Thursday. 3. Expect on site visit from [facility] on Thursday at [facility] to evaluate the patient.4. Possible return to [facility]. Senior management aware. CM will continue to follow.
[2021-11-28] MEDS: risperiDONE 1 MG TABLET PO ×2 (21:01→21:02)
[2021-11-29 05:13] VITALS: BP 147/86; PULSE 100; RESP 20; O2SAT 97
--- NOTE | 2021-11-29 06:26 | PC.NURSE ---
Patient slept through the night, no distress observed/reported, compliant with vital assessment, behavior non concerning, self dialoguing in the morning, no update on bed search from case management, expressing need well, appetite good, PRN Risperidone 1 mg administered as ordered at 2102, will continue to monitor.
[2021-11-29] MEDS: risperiDONE 1 MG TABLET PO (07:12)
[2021-11-29 09:04] VITALS: RESP 18
--- NOTE | 2021-11-29 12:25 | PC.NURSE ---
Plan for male nurse later to give scheduled injection, pt interacts better with males and t/w feels to give the med now would turn into a physical and possibly chemical restraint. Plan ok'd by smelter charger.
[2021-11-29] MEDS: LORazepam 2 MG/ML VIAL IM (14:05)
[2021-11-29] MEDS: Haloperidol Lactate 5 MG/ML VIAL IM (14:05)
[2021-11-29] MEDS: Paliperidone Palmitate 234 MG/1.5 ML SYRINGE IM (14:14)
--- NOTE | 2021-11-29 14:14 | PC.NURSE ---
This health underwriter present for Invega administration. Pt again informed of medication use, intent, schedule. Pt repeated, Ok, so I will take this today and then I will get in again in one month? Staff affirmed. Pt pleasantly and calmly then replied, Ok, sure. I will take it now, go ahead and lifted his sleeve, offering his (L) arm for the injection.
[2021-11-29 14:20] VITALS: RESP 15
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
--- NOTE | 2021-11-29 14:21 | PC.NURSE ---
Late entry: Per nursing leadership, pt to receive invega as soon as possible. Team of nursing staff, ancillary staff, and security, along with Dr. Villalobos assembled to make medicating patient as non-traumatic as possible. Pt received ativan and haldol IM as charted for threatening behaviors, and aggression to facilitate patient and staff safety. Pt required hold to give medications. Pt then willingly accepted the invega injection 10 minutes later with no hold required. No staff were injured during the process, pt bethany well and did not sustain any injuries. Plan for security to remain on standby for short time should any refractory agression occur. Currently patient is in bed resting quietly with eyes closed, resp reg and even, NAD.
[2021-11-29 14:35] VITALS: RESP 14
--- NOTE | 2021-11-29 14:37 | MHC.CM.ED ---
Patient remains in ER pod. Received Invega 234mg IM at 14:14. Collaborative meeting arranged for Thursday with [facility], [facility] and [facility] leadership. Continue to monitor for d/c needs.
[2021-11-29 14:50] VITALS: RESP 14
[2021-11-30 05:33] VITALS: RESP 16
--- NOTE | 2021-11-30 06:25 | PC.NURSE ---
Patient slept through whole evening and the night, patient was s/p chemical restraint, no negative effect, no distress observed/reported, patient showered at 0620, mood pleasant at this time, will continue to monitor.
--- NOTE | 2021-11-30 07:42 | PC.NURSE ---
patient appears to remain at rest at present respirations are even and unlabored patient appears in no distress
--- NOTE | 2021-11-30 12:44 | PC.NURSE ---
client napped lengthily this morning, spoke in seemingly longer sentences, ate a ham sandwich he requested with a salt packet, sat on bed and did some repeated brisk hand gestures. maintains safe behavior.
[2021-11-30 17:28] VITALS: BP 144/84; PULSE 120; RESP 20; TEMP 36.8; O2SAT 95
[2021-12-01 02:14] VITALS: RESP 16
[2021-12-01 03:06] VITALS: BP 152/88; PULSE 98; RESP 16; TEMP 36.9; O2SAT 98
--- NOTE | 2021-12-01 06:37 | PC.NURSE ---
Mario was awake throughout most of the night. He asked for multiple servings of snacks, at which point RN set limitations due to supply and demand. Patient observed to be aggressively pacing around the unit throughout the night, disheveled and incontinent, making multiple trips to the bathroom. Patient paranoid and self-dialoguing throughout the night, making noises loudly in his room. Slept for a little while on shift, is safe on checks, will continue to monitor.
--- NOTE | 2021-12-01 07:35 | PC.NURSE ---
patient appears to remain asleep at present respirations are even and unlabored, patient appears in no distress
[2021-12-01 18:45] VITALS: BP 112/67; PULSE 92; RESP 20; TEMP 36.4; O2SAT 95
[2021-12-02 02:22] VITALS: BP 132/96; PULSE 102; RESP 18; O2SAT 96
--- NOTE | 2021-12-02 05:58 | PC.NURSE ---
Patient stayed awake whole night, in and out of room multiple times for various needs, appears restless refused to take medication, showered x 2 during overnight shift due accident, behavior non concerning at this time, no update on bed search from case management, will continue to monitor.
--- NOTE | 2021-12-02 07:08 | PC.NURSE ---
patient appears to remain asleep at present, according to overnight report clients sleep was restless. respirations are even and unlabored patient appears in no distress.
--- NOTE | 2021-12-02 11:10 | MHC.CM.ED ---
Addendum entered by Rhoda England 12/02/21 12:35: [facility] will be on site sometime this week to visit with patient. Original Note: Patient remains in ER pod. Collaborative meeting planned with [facility] leadership, [facility] and [facility] for 1130am today. Continue to monitor for d/c needs.
--- NOTE | 2021-12-02 15:27 | PC.NURSE ---
Patient taking shower, bed and room changed over.
[2021-12-02 21:07] VITALS: BP 127/84; PULSE 112; RESP 17; O2SAT 97
[2021-12-02 23:18] VITALS: BP 116/87; PULSE 117; RESP 19; O2SAT 96
--- NOTE | 2021-12-03 05:11 | PC.NURSE ---
Patient slept through the night, no distress observed/reported, behavior non concerning, follows direction well, expresses need well, no update on bed search, VSS, no self dialoguing, VSS, will continue to monitor.
--- NOTE | 2021-12-03 07:17 | PC.NURSE ---
patient appears to remain asleep at present respirations are even and unlabored patient appears in no distress
[2021-12-03] MEDS: Nicotine Polacrilex 2 MG GUM BUCCAL (16:08)
--- NOTE | 2021-12-03 16:08 | PC.NURSE ---
t/w inquired of patient if he felt better on new medicine, he said when it first started i slept too much, didnt know if i was coming or going...i still dont like it t/w did remark he looked brighter . better eye contact during this conversation
[2021-12-03 21:35] VITALS: BP 117/81; PULSE 93; RESP 16; TEMP 37.1; O2SAT 97
[2021-12-04 02:16] VITALS: BP 147/89; PULSE 95; RESP 16; TEMP 36.9; O2SAT 98
--- NOTE | 2021-12-04 05:32 | PC.NURSE ---
Patient slept intermittently slept throughout the night, no distress observed/reported, behavior non concerning, follows direction well, listened to music, expresses need well, no update on bed search, pending [facility] visit, VSS, no self dialoguing, VSS, will continue to monitor.
--- NOTE | 2021-12-04 07:00 | PC.NURSE ---
patient appears to remain asleep at present respirations are even and unlabored patient appears in no distress
--- NOTE | 2021-12-04 08:15 | PC.NURSE ---
client, after returning cordless earphones that needed a charge, asked any news when im leaving? t/w relayed that there was a meeting on thursday wherein future planning was discussed and that a staff from [facility] was supposed to come by this week and see how he was doing. t/w relayed that any new information would be relayed to him promptly.
--- NOTE | 2021-12-04 08:32 | MHC.CM.ED ---
Addendum entered by Rhoda England 12/04/21 09:12: Received notification from Che Durant that [facility] will be on site today to see with patient. Original Note: Patient remains in ER pod. Anticipate [facility] will do an on-site visit with patient this week. Continue to monitor for d/c needs.
--- NOTE | 2021-12-04 10:28 | MHC.CM.ED ---
Addendum entered by Rhoda England 12/04/21 11:01: Benji has completed his on-site visit with patient and pod staff. Benji feels patient is more engaged and having less internal stimuli. Benji is feeling positive about patient's current mental status and behavioral control. We will report his findings to [facility]. Original Note: Benji from [facility] on site to visit with patient. Benji escorted to pod. Continue to monitor for d/c needs.
[2021-12-04] MEDS: Nicotine Polacrilex 2 MG GUM BUCCAL ×3 (13:27→22:04)
--- NOTE | 2021-12-04 22:13 | PC.NURSE ---
Patient is reporting tactile hallucination, olanzapine 2.5 mg administered as ordered/pending effect.
[2021-12-04 23:28] VITALS: BP 128/88; PULSE 115; RESP 18; O2SAT 97
--- NOTE | 2021-12-05 06:30 | PC.NURSE ---
Patient struggled to fall sleep but slept well, no distress observed/reported, behavior non concerning, follows direction well, expresses need well, no update on bed search, pending I-care visit, VSS, self dialoguing observed, VSS, will continue to monitor.
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
--- NOTE | 2021-12-05 12:12 | MHC.CM.ED ---
Patient remains in ER. Clinical updates sent to [facility] via [facility]. T/W attempted to speak with Benji of [facility] via telephone. Benji will be off for the rest of the week. He doesn't have a voicemail at the facility. Continue to monitor for d/c needs.
--- NOTE | 2021-12-05 16:32 | PC.NURSE ---
Earlier this am, this senior underwriter emailed Sammy Mason from [facility] leadership with a status update regarding dispo plan/timing of patient returning to that facility. As of this time, response has yet to be received. Will continue to monitor.
--- NOTE | 2021-12-05 18:36 | PC.NURSE ---
During this shift [id number] this rn has witnessed pt behaviour become increasingly erratic marisa over [id number]. Pt is having increasingly more frequnet episodes of yelling, talking to himself loudly and slamming his hands on his bed and chair. When questioned by this rn pt responds calmy and appropriatly with even tones and while maintaining appropriate eye contact. Pt denies feeling agitated and offers no complaint. Pt remains caox4. Pt has been noted to now be pacing common area and is very restless. Pt is refusing medication to relax him VS have been taken and documented. PAC dejesus is aware and PO benadryl is ordered. Pt is not threatening to self, staff or other patients at this time.
[2021-12-05 18:40] VITALS: BP 122/64; PULSE 83; TEMP 36.7; O2SAT 97
[2021-12-06] MEDS: Nicotine Polacrilex 2 MG GUM BUCCAL ×4 (02:25→10:29)
[2021-12-06 04:09] VITALS: BP 124/81; PULSE 90; RESP 16; TEMP 36.6; O2SAT 97
--- NOTE | 2021-12-06 05:05 | PC.NURSE ---
Patient did not sleep well, no distress observed/reported, behavior non concerning, follows direction well, expresses need well, no update on bed search, VSS, self dialoguing observed, VSS, will continue to monitor.
--- NOTE | 2021-12-06 07:05 | PC.NURSE ---
patient appears to remain asleep at present respirations are even and unlabored patient appears in no distress
--- NOTE | 2021-12-06 08:59 | MHC.CM.ED ---
Patient remains in ER. Received notification patient can return to [facility] on Thursday between 10a-12pm. CASA Gonzáles made aware. Sneha COBIAN aware. T/W attempted to notify guardian, via telephone at [phone]. There was no answer and no ability to leave a voicemail. Will attempt to call again. Continue to monitor for d/c needs.
[2021-12-06 09:15] LABS: Appearance Urine CLEAR; Color Urine YELLOW; Glucose Urine UA NEG (NEG); Leukocyte Esterase Urine NEG (NEG); Nitrite Urine NEG (NEG); PH 5.5 (5.0-8.0); Specific Gravity - Urine 1.025 (1.005-1.025); Urine Blood NEG (NEG); Urine Ketones NEG (NEG); Urine Protein NEG (NEG-TRACE)
[2021-12-06 09:30] LABS: RBC Urine 0 /HPF (0); WBC Urine 0-2 /HPF (0-4)
--- NOTE | 2021-12-06 18:17 | PC.NURSE ---
Patient took shower and had linens changed
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
[2021-12-06] MEDS: Paliperidone Palmitate 156 MG/ML SYRINGE IM (20:28)
[2021-12-07 02:12] VITALS: BP 115/69; PULSE 94; RESP 18; O2SAT 95
--- NOTE | 2021-12-07 06:51 | PC.NURSE ---
Patient slept through the night, no distress observed/reported, behavior pleasant, willingly agreed to take Invega 156 mg IM/administered at 2027, VSS, will continue to monitor.
--- NOTE | 2021-12-07 09:18 | PC.NURSE ---
pt awake and pacing in room. periodically leaving room to use the bathroom. pt at this time not willing to speak with mau
[2021-12-07 10:37] VITALS: BP 129/71; PULSE 90; RESP 16; TEMP 36.8; O2SAT 95
--- NOTE | 2021-12-07 11:03 | MHC.CM.ED ---
Patient remains in ER pod. Patient will return to [facility] on Thursday. Continue to monitor for d/c needs.
--- NOTE | 2021-12-07 12:58 | PC.NURSE ---
pt out of bed to watch tv in the common area.
--- NOTE | 2021-12-07 13:26 | PC.NURSE ---
pt ate all his lunch and has requested more.
--- NOTE | 2021-12-07 16:49 | PC.NURSE ---
pt awake and OOB, periodically watching TV in the common area. pt will return to his room where he appears to responding to internal stimuli. pt able to appropriately make requests to have his needs met. at this time pt requested toothbrush and toothpaste.
--- NOTE | 2021-12-07 19:26 | PC.NURSE ---
Care assumed at this time, report from Nika CORMIER. Pt in room, pacing, self dialoguing
[2021-12-07] MEDS: Nicotine Polacrilex 2 MG GUM BUCCAL (19:41)
[2021-12-07 23:23] VITALS: BP 121/72; PULSE 88; TEMP 36.6; O2SAT 98
--- NOTE | 2021-12-08 06:31 | PC.NURSE ---
Patient slept through the night, no distress observed/reported, behavior pleasant, expressing need well, grooming well, VSS, will continue to monitor.
[2021-12-08 08:44] LABS: COVID-19 Test Negative (Negative); IDNOW Serial# 16C4AD1C
[2021-12-08] MEDS: Nicotine Polacrilex 2 MG GUM BUCCAL (09:15)
--- NOTE | 2021-12-08 12:13 | MHC.CM.ED ---
Addendum entered by Rhoda England 12/08/21 12:17: Voicemail left for patient's guardian, Allison Fabian explaining discharge plan. Original Note: Patient remains in ER. Will return to [facility] on Saturday 12/09 at 10am. [facility] booked. Med nec is with chart. CM will have to touch base with [facility] in the morning to verify discharge. Continue to monitor for d/c needs.
--- NOTE | 2021-12-08 13:14 | PC.NURSE ---
Patient ate breakfast, took shower and had linens changed. at this time resting comfortably in bed.
[2021-12-09 03:21] VITALS: BP 125/80; PULSE 96; RESP 16; TEMP 36.6; O2SAT 99
--- NOTE | 2021-12-09 07:09 | PC.NURSE ---
Patient slept through the night, no distress observed/reported, behavior pleasant and respectful, expressing need well, grooming well, VSS, will continue to monitor.
[2021-12-09] MEDS: Nicotine Polacrilex 2 MG GUM BUCCAL (07:26)
--- NOTE | 2021-12-09 08:40 | MHC.CM.PN ---
Call placed to Yahaira at [facility]: Message left confirming pt's d/c from [facility] to [facility] today at 10am via [facility]. Confirmed with [facility] transport to [facility] today at 10am. ED RN's aware of d/c plan: Med Nec form and d/c summary ready.
--- NOTE | 2021-12-09 09:18 | PC.NURSE ---
Pt awake, calm and cooperative this morning. Given nictine gum as per pt request. Plan for DC at 10am this morning.
== END 2021-12-09 10:47 | disposition skilled nursing facility (03) ==
PROVIDERS: Emergency Medicine; Physician Assistant; Physician Assistant Medical; Emergency Provider Emergency Medicine Emergency Medical Services
DX: F10.27 Alcohol dependence with alcohol-induced persisting dementia (principal); F10.259 Alcohol dependence with alcohol-induced psychotic disorder, unspecified; T51.0X4A Toxic effect of ethanol, undetermined, initial encounter; Y90.9 Presence of alcohol in blood, level not specified; F03.91 Unspecified dementia, unspecified severity, with behavioral disturbance; R00.0 Tachycardia, unspecified; R45.1 Restlessness and agitation; F41.9 Anxiety disorder, unspecified; Z79.899 Other long term (current) drug therapy; Z87.820 Personal history of traumatic brain injury; Z91.14 Patient's other noncompliance with medication regimen; Z20.822 Contact with and (suspected) exposure to COVID-19
CPT/HCPCS: 36415; 80053; 80307; 81001; 81003; 83735; 85025; 87635; 99285; J2060; J2426

== ENCOUNTER → 2024-10-07 13:30 | Outpatient (BNVA) | payer MEDICAID, SELFPAY | PROVIDERS: PCP Emergency Medicine; Visit Provider Nurse Practitioner Family | DX: Z12.11 Encounter for screening for malignant neoplasm of colon (principal) | CPT/HCPCS: 99212 ==

== ENCOUNTER 2024-11-24 07:40 | Day surgery (SDC) | payer MEDICAID, SELFPAY ==
[2024-11-22 13:37] VITALS: BMI 33.4
[2024-11-23 07:32] VITALS: BMI 30.9
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
[2024-11-24 09:07] VITALS: BP 118/84; PULSE 84; RESP 18; TEMP 36.4; O2SAT 96; BMI 29.9
--- NOTE | 2024-11-24 09:21 | P.HPSUR_ITS ---
Pre-Procedural Eval Section A - 24 Hr Update-Section A only Date of Service: 11/24/24 Section B - Complete if H&P > 30 days Chief Complaint: Encounter for screening for malignant neoplasm of Relevant Family History (Specify if Yes): No Relevant Social History: Tobacco Use Present Medications: see Short Stay Collaborative assessment Medical History: Significant History (Unspecified atherosclerosis of [place] arteries of extremities, bilateral legs Vitamin D deficiency Chronic pain Anxiety Nicotine dependence, unspecified, uncomplicated Functional urinary incontinence Dysthymic disorder Depression Constipation Atopic dermatitis Antisocial personality disorder Adjustm) History of Previous Operations: Relevant previous surgery/procedure and date(s) (History of back surgery) Allergies: Allergies Allergy/AdvReac Type Severity Reaction Status Date / Time latex Allergy Mild Rash Verified 11/24/24 09:16 bupropion Allergy Hives Verified 11/24/24 09:16 Review of Systems Sugical H&P ROS: Negative: Constitution, Cardiovascular, Respiratory, Neurological, Psychiatric, Hem-Onc, Allergic/Immunologic, Gastrointestinal, Genitourinary, Musculoskeletal, Integumentary, Endocrine and Eyes/Ears/Nose/Throat Exam Surgical H&P Exam: Normal: HEENT, Normal: Heart, Normal: Lungs, Normal: Extremities, Normal: Abdomen, Normal: Skin and Normal: Neurological Plan Diagnosis/Plan: Unchanged I have reviewed the history and physical and performed a pertinent physical examination on my patient. No changes have occurred unless specified. Time Spent With Patient Time: Total time managing care of this patient today ____ minutes.
[2024-11-24 09:34] LABS: Glucose, Whole Blood 145 mg/dL (60-115)
[2024-11-24] MEDS: Lactated Ringers 1,000 ML 100 ML IVCONT (09:34)
--- NOTE | 2024-11-24 10:00 | P.OPN-COLO_ITS ---
Colonoscopy Operative Note Operative Note Date of Service: 11/24/24 Narrative: Operative Information Procedure Description: Colonoscopy Indication: screening Anesthesia: MAC COLONOSCOPY Instrument: Olympus variable stiffness pediatric scope 190L Colonoscopy Monitoring: Vital signs and clinical assessment, continuous EKG monitoring, Pulse oximetry, Carbon Dioxide monitoring and blood pressure monitoring were done throughout the procedure. Colon withdrawal time was 12 minutes. Procedure: The patient was placed in the left lateral decubitis position and pre-procedure medications were administered. After a digital rectal examination of the ano-rectum, the video colonoscope was inserted into the rectum and advanced through the colon to the cecum/TI. The colonoscope was slowly withdrawn in a retrograde panoramic fashion and the colon mucosa was carefully examined including a retroflexed view of the rectum. Findings and interventions are described below. Procedure Difficulty: moderate-pressure applied Findings: Terminal Ileum-normal Cecum: 8-9 mm sessile polyp removed with cold snare Ascending Colon: normal Transverse Colon -normal Descending Colon:normal Sigmoid Colon: normal Rectum: Retroflexion with small internal hemorrhoids seen, grade I Anorectum - normal Intervention: cold snare Colon preparation: [place] Bowel Preparation Scale Right colon; 2 Transverse colon: 2 Left colon; 1-2 (0 = Unprepared colon segment with mucosa not seen due to solid stool that cannot be cleared. 1 = Portion of mucosa of the colon segment seen, but other areas of the colon segment not well seen due to staining, residual stool and/or opaque liquid. 2 = Minor amount of residual staining, small fragments of stool and/or opaque liquid, but mucosa of colon segment seen well. 3 = Entire mucosa of colon segment seen well with no residual staining, small fragments of stool or opaque liquid) Impression and Post Procedure Diagnosis: colon polyp internal hemorrhoids Plan: High fiber diet leaflet Avoid straining at stool, epsom salts and sitz bath, anusol supps or cream Repeat Colonoscopy in 3 years due to some areas of fair prep on the left or earlier if clinically indicated Above findings were reviewed with the patient and relevant handouts were provided if indicated.
[2024-11-24 10:06] VITALS: BP 105/67; PULSE 81; RESP 20; TEMP 36.3; O2SAT 94
[2024-11-24 10:30] VITALS: BP 103/74; PULSE 76; RESP 16; TEMP 36.7; O2SAT 96
== END 2024-11-24 10:44 | disposition home or self-care (01) ==
PROVIDERS: PCP Emergency Medicine; Visit Provider Internal Medicine Gastroenterology
PROC: 0DJD8ZZ Inspection of Lower Intestinal Tract, Via Natural or Artificial Opening Endoscopic (ICD-10-PCS; CPT 45378; principal; 2024-11-24 09:40)
DX: Z12.11 Encounter for screening for malignant neoplasm of colon (principal); D12.0 Benign neoplasm of cecum; K64.0 First degree hemorrhoids; I10 Essential (primary) hypertension; F03.92 Unspecified dementia, unspecified severity, with psychotic disturbance; F10.27 Alcohol dependence with alcohol-induced persisting dementia; B19.20 Unspecified viral hepatitis C without hepatic coma; J44.9 Chronic obstructive pulmonary disease, unspecified; E11.9 Type 2 diabetes mellitus without complications; E78.5 Hyperlipidemia, unspecified; Z88.8 Allergy status to other drugs, medicaments and biological substances; Z91.040 Latex allergy status; Z87.820 Personal history of traumatic brain injury; Z79.4 Long term (current) use of insulin; F19.11 Other psychoactive substance abuse, in remission; F10.91 Alcohol use, unspecified, in remission; F17.210 Nicotine dependence, cigarettes, uncomplicated; Z79.82 Long term (current) use of aspirin; Z79.84 Long term (current) use of oral hypoglycemic drugs; Z79.899 Other long term (current) drug therapy
CPT/HCPCS: 45385; 82947; 88305; J2003; J2704

== ENCOUNTER → 2024-11-24 07:40 | Outpatient (BNV) | payer MEDICAID, SELFPAY | PROVIDERS: PCP Emergency Medicine; Visit Provider Internal Medicine Gastroenterology | DX: Z12.11 Encounter for screening for malignant neoplasm of colon (principal); D12.0 Benign neoplasm of cecum; K64.8 Other hemorrhoids | CPT/HCPCS: 45385 ==

== ENCOUNTER 2024-12-14 14:35 | Outpatient (AMB) | payer MEDICAID, SELFPAY ==
[2024-12-14 14:41] VITALS: BP 112/72; PULSE 98; O2SAT 95; BMI 30.9
--- NOTE | 2024-12-14 14:41 | A.OFFVIS_ITS ---
Vital Signs 12/14/24 14:41 Height 6 ft Weight 227 lb 15.327 oz BMI 30.9 BP 112/72 Blood Pressure Location Rt brachial Position Sitting Pulse 98 Pulse Source Pulse Oximeter Pulse Oximetry (%) 95 Oxygen Delivery Method Room Air Intake Visit Reasons: S/P colo Issa Intake Note: NEW PATIENT for s/p colo. 3 year recall due to fair prep in 1 area. Chief Complaint; Pt denies any GI sx or concerns at this time. Pt [employer] does not have physician consultation form with them. Provided [employer] with fax # for the office and advised them to call and have it sent to us. No GI concerns at this time. Operators Teacher Required: No Accompanied by: Self / Same As Patient Allergies latex Allergy (Mild, Verified 12/14/24 14:41) Rash bupropion Allergy (Verified 12/14/24 14:41) Hives HPI HPI S/P colo Issa: Details: LAST VISIT: Screen for colon cancer Plan Patient denies any GI, cardiac or respiratory symptoms.? Denies any issues with anesthesia in the past.? Denies any history of sleep apnea.? History of hep C. On low-dose aspirin.? No family or personal history of colon cancer or polyps.? Patient denies melena, hematochezia, unintentional weight loss or ribbon like stools.? Discussed at length the pre-procedure,? prep, diet & medications as well as what to expect prior, during and after the procedure.?? Stressed the importance of good bowel prep.? Recommended the use of Vaseline or Calmoseptine OTC & baby wipes with bowel movements to promote comfort.? ?Patient verbalizes understanding and agrees to plan of care.? He was given the opportunity to ask questions and all questions answered.? We will see him after the procedure.? Medications New polyethylene glycol 3350 (Miralax) As directed by gastroenterology department at [facility] 238 grams PO ONCE 238 grams 0RF Z12.11 bisacodyl (Dulcolax (bisacodyl)) take 4 tabs at noon the day before your colonoscopy 20 mg (4 x 5 mg) PO ONCE 1 day 4 tabs 0RF Z12.11 COLONOSCOPY: Findings: Terminal Ileum-normal Cecum: 8-9 mm sessile polyp removed with cold snare Ascending Colon: normal Transverse Colon -normal Descending Colon:normal Sigmoid Colon: normal Rectum: Retroflexion with small internal hemorrhoids seen, grade I Anorectum - normal Intervention: cold snare Colon preparation: Rebecca Bowel Preparation Scale Right colon; 2 Transverse colon: 2 Left colon; 1-2 (0 = Unprepared colon segment with mucosa not seen due to solid stool that cannot be cleared. 1 = Portion of mucosa of the colon segment seen, but other areas of the colon segment not well seen due to staining, residual stool and/or opaque liquid. 2 = Minor amount of residual staining, small fragments of stool and/or opaque liquid, but mucosa of colon segment seen well. 3 = Entire mucosa of colon segment seen well with no residual staining, small fragments of stool or opaque liquid) Impression and Post Procedure Diagnosis: colon polyp internal hemorrhoids Plan: High fiber diet leaflet Avoid straining at stool, epsom salts and sitz bath, anusol supps or cream Repeat Colonoscopy in 3 years due to some areas of fair prep on the left or earlier if clinically indicated PATHOLOGY RESULTS: Diagnosis Cecum, polypectomy: Tubular adenoma; negative for high-grade dysplasia or carcinoma TODAY'S VISIT Patient is here for follow-up and to discuss colonoscopy results. Patient had 1 tubular adenoma without high-grade dysplasia or carcinoma. Denies any ill effects from the prep, anesthesia or procedure itself. Patient is accompanied by longterm staff. Patient had suboptimal prep and will need to return for colonoscopy in 3 years. Patient reports that he is moving his bowels without any issues 1 or twice a day. Patient denies any melena, hematochezia. Denies any GI concerning symptoms. Denies any nausea or vomiting. Denies any dyspepsia, dysphagia or odynophagia. Patient denies any family history of [facility] Medical History (Updated 12/14/24 @ 15:16 by Vania Moyer [facility]-) Tubular adenoma of colon Unspecified atherosclerosis of [place] arteries of extremities, bilateral legs Vitamin D deficiency Chronic pain Anxiety Nicotine dependence, unspecified, uncomplicated Functional urinary incontinence Dysthymic disorder Depression Constipation Atopic dermatitis Antisocial personality disorder Adjustment disorder with other symptoms Back pain Chronic renal insufficiency Substance use disorder Hep C w/o coma, chronic HLD (hyperlipidemia) Urinary incontinence Spondylosis HTN (hypertension) Presbyopia Autonomic neuropathy Gait abnormality Traumatic brain injury COVID-19 Hypothyroidism Neurocognitive disorder USP (current) use of insulin Disc degeneration, lumbar COPD (chronic obstructive pulmonary disease) Diabetes mellitus Psychotic disorder Dementia associated with alcoholism with behavioral disturbance Surgical History History of back surgery Family History Unknown Crohn disease Coronary artery disease Diabetes mellitus COPD (chronic obstructive pulmonary disease) Social History Alcohol intake: unknown Patient Tobacco Use Status: Current everyday Tobacco user Tobacco use type: Cigarette Cigarettes Per Day: 2 Years Smoked: 5 Review of Systems Const Denies weight gain and Denies weight loss ENT Reports no additional complaints, Denies dysphagia and Denies odynophagia Card Reports no additional complaints Resp Reports no additional complaints GI Denies abdominal pain, Denies belching, Denies melena, Denies bloating, Denies change in bowel habits, Denies dysphagia, Denies excessive flatus, Denies dyspepsia, Denies heartburn, Denies diarrhea, Denies loose stools, Denies nausea, Denies odynophagia and Denies vomiting Reports no additional complaints Musc Reports no additional complaints Neuro Reports no additional complaints Psych Reports no additional complaints Endo Reports no additional complaints Physical Exam Vital Signs: Last Vital Signs Pulse 98 12/14/24 14:41 BP 112/72 12/14/24 14:41 Pulse Ox 95 12/14/24 14:41 Oxygen Delivery Method Room Air 12/14/24 14:41 BMI result Body Mass Index 30.9 Const General: healthy appearing and no acute distress Nutritional Appearance: obese Orientation/consciousness: patient oriented x3 Resp Effort & Inspection: normal respiratory effort, able to speak in complete sentences, no tracheal deviation and symmetric chest movement Auscultation: clear to auscultation bilaterally Cardio Rate: regular rate GI Inspection: Yes normal to inspection, No distended and Yes obesity Palpation (GI): Soft to palpation, not firm, nontender and No hepatosplenomegaly present Auscultation: normal bowel sounds General: Yes no CVA tenderness Back/Spine/Pelvis Back: no CVA tenderness Skin General skin exam: elasticity normal, turgor normal and dry skin Neuro General: patient oriented x3 Psych Appearance: grossly normal Mental Status: mental status grossly normal Assessment & Plan Assessment & Plan (1) Tubular adenoma of colon: Code(s): D12.6 - Benign neoplasm of colon, unspecified Category: Medical (2) Status post colonoscopy: Code(s): Z98.890 - Other specified postprocedural states Plan One tubular adenoma found on colonoscopy without high-grade dysplasia or carcinoma. Recommendation for 3 year colonoscopy. Patient denies any GI concerning symptoms and reports that he is moving his bowels without any issues. Will call our office if he will have any GI concerns. Both patient and staff are agreeable to plan of care and verbalizes understanding of instructions. They were given the opportunity to ask questions and all questions answered. Thank you for allowing me to participate in his care Coding Level of Care Code Est Pt Level 3 (43988) Diagnoses Tubular adenoma of colon D12.6 Status post colonoscopy Z98.890 Time Spent (min) 25 Comment 15 minutes spent with patient and additional 10 minutes spent reviewing his records
--- OUTSIDE RECORDS SUMMARY | 2024-12-14 16:49 | XMS_ITS | Clinical Summary ---
Author Organization [address] [facility] Address [address] [place] [address] Phone Care Team Providers Care Word Processing Machine Operator Name Role Phone Panda Bundy MD Primary Care Provider [phone] Encounters Date Type Department Care Team Description 11/14/2024 Lab Requisition [facility] - Main Lab [address] [facility] [employer] [place] [address] Panda Bundy MD Type 2 diabetes mellitus without complications (CMS/HCC) from Last 3 Months Social History Tobacco Use Types Packs/Day Years Used Date Smoking Tobacco: Never Assessed Sex and Gender Information Value Date Recorded Sex Assigned at Not on file Legal Sex Male 7:03 AM EST Gender Identity Not on file Sexual Orientation Not on file Plan of Treatment Health Maintenance Due Date Last Done Comments Diabetes: Annual Foot Exam 1983 Diabetes: Annual Retina Eye Exam 1983 DTaP,Tdap,and Td Vaccines (1 - Tdap) 1992 Hepatitis B Vaccines (1 of 3 - 19+ 3-dose series) 1992 Pneumococcal Vaccine: 50+ Ye ars (1 of 2 - PCV) 1992 Pneumococcal Vaccine: Pediat rics (0 to 5 Years) and At-Risk Patients (6 to 64 Years) (1 of 2 - PCV) 1992 Colorectal Cancer Screening: Colonoscopy 08/10/2022 Depression Screening 08/10/2022 HIV Screening 08/10/2022 Hepatitis C Screening 08/10/2022 Social Influencers of Health Screening 08/10/2022 Zoster Vaccines (1 of 2) 2023 COVID-19 Vaccine (1 - 2023-2 5 season) 2024 Influenza Vaccine (#1) 2024 Diabetes: Annual Urine Albumin-Creatinine Ratio (uACR) 08/10/2024 Diabetes: Blood Sugar Contro l Test (HGBA1C) 05/17/2025 11/14/2024 Diabetes: Annual GFR (Glomer ular Filtration Rate) 08/10/2025 08/10/2024 Hypertension/CHF/CAD Annual BMP Blood Test 08/10/2025 08/10/2024 Cholesterol Screening (Lipid Panel) 08/29/2029 08/29/2024 HIB Vaccines Aged Out No longer eligi ble based on patient's age to complete this topic HPV Vaccines Aged Out No longer eligi ble based on patient's age to complete this topic Hepatitis A Vaccines Aged Out No long er eligible based on patient's age to complete this topic IPV Vaccines Aged Out No longer eligi ble based on patient's age to complete this topic MMR Vaccines Aged Out No longer eligi ble based on patient's age to complete this topic Meningococcal ACWY Vaccine Aged Out N o longer eligible based on patient's age to complete this topic Meningococcal B Vaccine Aged Out No l onger eligible based on patient's age to complete this topic RSV Immunization Patients Un juan 20 months Aged Out No longer eligible b ased on patient's age to complete this topic Varicella Vaccines Aged Out No longer eligible based on patient's age to complete this topic Procedures Procedure Name Priority Date/Time Associated Diagnosis Comments HEMOGLOBIN A1C Routine 11/14/2024 6:12 AM EDT Type 2 diabetes mellitus without complications (CMS/HCC) LIPID PANEL WITH REFLEX TO DIRECT LDL Routine 08/29/2024 4:56 AM EST Unspecified viral hepatitis C without hepatic coma Hyperlipidemia, unspecified BASIC METABOLIC PANEL Routine 08/10/2024 5:13 AM EST Type 2 diabetes mellitus without complications (CMS/HCC) from Last 3 Months or Most Recently Relevant to Health Maintenance Results * (ABNORMAL) Hemoglobin A1c (11/14/2024 6:12 AM EDT) Hemoglobin A1C 8.1(H) <6.5 % LAB CHEMISTRY METHOD 11/14/2024 1:49 PM EDT [facility] Mean Bld Glu Estim. 186 mg/dL LAB CHEMISTRY METHOD 11/14/2024 1:49 PM EDT [facility] Blood Venous blood specimen / Unknown Venipuncture / Unknown 11/14/2024 6:12 AM EDT 11/14/2024 11:05 AM EDT Panda Bundy MD LAB BLOOD ORDERABLES Final R esult [facility] [address] [place] [address], [place] [phone] * (ABNORMAL) Lipid panel with reflex to direct LDL (08/29/2024 4:56 AM EST) Cholesterol 219(H) 0 - 200 mg/dL LAB CHEMISTRY METHOD 08/29/2024 10:40 AM EST [facility] Triglycerides 384(H) 0 - 150 mg/dL LAB CHEMISTRY METHOD 08/29/2024 10:40 AM EST [facility] HDL 32(L) >=40 mg/dL LAB CHEMISTRY METHOD 08/29/2024 10:40 AM EST [facility] LDL Calculated 110(H) 0 - 100 mg/dL LAB CHEMISTRY METHOD 08/29/2024 10:40 AM EST [facility] VLDL Cholesterol Kiran 76.8 mg/dL LAB CHEMISTRY METHOD 08/29/2024 10:40 AM EST [facility] Non HDL Chol. (LDL+VLDL) 187(H) <145 mg/dL LAB CHEMISTRY METHOD 08/29/2024 10:40 AM EST [facility] Chol/HDL Ratio 6.8(H) 0.0 - 4.4 LAB CHEMISTRY METHOD 08/29/2024 10:40 AM EST [facility] Blood Venous blood specimen / Unknown Venipuncture / Unknown 08/29/2024 4:56 AM EST 08/29/2024 9:44 AM EST Panda Bundy MD LAB BLOOD ORDERABLES Final R esult [facility] [address] [place] [address], [place] [phone] * (ABNORMAL) Basic metabolic panel (08/10/2024 5:13 AM EST) Sodium 139 133 - 145 mmol/L LAB CHEMISTRY METHOD 08/10/2024 1:06 PM [facility] Potassium 4.1 3.5 - 5.5 mmol/L LAB CHEMISTRY METHOD 08/10/2024 1:06 PM [facility] Chloride 105 96 - 110 mmol/L LAB CHEMISTRY METHOD 08/10/2024 1:06 PM [facility] CO2 23 21 - 32 mmol/L LAB CHEMISTRY METHOD 08/10/2024 1:06 PM [facility] Anion Gap 11 3 - 11 LAB CHEMISTRY METHOD 08/10/2024 1:06 PM [facility] Glucose 137(H) 70 - 100 mg/dL LAB CHEMISTRY METHOD 08/10/2024 1:06 PM [facility] BUN 10 5 - 25 mg/dL LAB CHEMISTRY METHOD 08/10/2024 1:06 PM [facility] Creatinine 0.88 0.70 - 1.30 mg/dL LAB CHEMISTRY METHOD 08/10/2024 1:06 PM [facility] eGFR 105 >=60 mL/min/1. 73m2 LAB CHEMISTRY METHOD 08/10/2024 1:06 PM [facility] Comment:Calculation based on the??Chronic Kidney Disease Epidemiology Collaboration (CKD-EPI) equation refit??without adjustment for race. BUN/Creatinine Ratio 11.4 LAB CHEMISTRY METHOD 08/10/2024 1:06 PM [facility] Calcium 8.9 8.5 - 10.5 mg/dL LAB CHEMISTRY METHOD 08/10/2024 1:06 PM [facility] Blood Venous blood specimen / Unknown Venipuncture / Unknown 08/10/2024 5:13 AM EST 08/10/2024 10:52 AM EST us Panda Bundy MD LAB BLOOD ORDERABLES Final R esult [facility] [address] [place] [address], [place] [phone] from Last 3 Months or Most Recently Relevant to Health Maintenance Insurance MEDICAID - [place] Care Teams Word Processing Machine Operator Relationship Specialty Start Date End Date Panda Bundy MD [address] [place] [address] PCP - General Family Medicine 08/15/24
--- OUTSIDE RECORDS SUMMARY | 2024-12-14 16:49 | XMS_ITS | Encounter Summary ---
Author Organization [employer] Address [address] [place] [address] Care Team Providers Care Accounting Manager Controller Name Role Phone Panda Bundy MD Primary Care Provider Encounter Details Date Type Department Care Team (Latest Contact Info) Description 08/10/2024 Lab Requisition [facility] - Main Lab [address] [place] [address] Panda Bundy MD [facility] [place] [address] Type 2 diabetes mellitus without complications (CMS/HCC) Social History Tobacco Use Types Packs/Day Years Used Date Smoking Tobacco: Never Assessed Sex and Gender Information Value Date Recorded Sex Assigned at Not on file Legal Sex Male 7:03 AM EST Gender Identity Not on file Sexual Orientation Not on file documented as of this encounter Plan of Treatment Not on file documented as of this encounter Procedures Procedure Name Priority Date/Time Associated Diagnosis Comments CREATINE KINASE Routine 08/10/2024 5:13 AM EST Type 2 diabetes mellitus without complications (CMS/HCC) HEPATIC FUNCTION PANEL Routine 08/10/2024 5:13 AM EST Type 2 diabetes mellitus without complications (CMS/HCC) BASIC METABOLIC PANEL Routine 08/10/2024 5:13 AM EST Type 2 diabetes mellitus without complications (CMS/HCC) documented in this encounter Results * Creatine kinase (08/10/2024 5:13 AM EST) Total CK 103 22 - 269 unit/L LAB CHEMISTRY METHOD 08/10/2024 1:06 PM EST [facility] Blood Venous blood specimen / Unknown Venipuncture / Unknown 08/10/2024 5:13 AM EST 08/10/2024 10:52 AM EST Panda Bundy MD LAB BLOOD ORDERABLES Final R esult [facility] [address] [place] [address], [place] [phone] * (ABNORMAL) Hepatic function panel (08/10/2024 5:13 AM EST) Total Protein 6.6 6.0 - 8.0 g/dL LAB CHEMISTRY METHOD 08/10/2024 1:09 PM EST [facility] Albumin 3.9 3.2 - 5.0 g/dL LAB CHEMISTRY METHOD 08/10/2024 1:09 PM [facility] Total Bilirubin 0.3 0.0 - 1.4 mg/dL LAB CHEMISTRY METHOD 08/10/2024 1:09 PM [facility] Bilirubin, Direct <0.1 0.0 - 0.3 mg/dL LAB CHEMISTRY METHOD 08/10/2024 1:09 PM [facility] Bilirubin, Indirect LAB CHEMISTRY METHOD 08/10/2024 1:09 PM [facility] Comment:Unable to calculate Indirect Bilirubin. ALT (SGPT) 104(H) 10 - 60 unit/L LAB CHEMISTRY METHOD 08/10/2024 1:09 PM [facility] AST (SGOT) 49(H) 10 - 42 unit/L LAB CHEMISTRY METHOD 08/10/2024 1:09 PM [facility] Alkaline Phosphatase 51 42 - 121 unit/L LAB CHEMISTRY METHOD 08/10/2024 1:09 PM [facility] Blood Venous blood specimen / Unknown Venipuncture / Unknown 08/10/2024 5:13 AM EST 08/10/2024 10:52 AM EST Panda Bundy MD LAB BLOOD ORDERABLES Final R esult [facility] [address] [place] [address], * (ABNORMAL) Basic metabolic panel (08/10/2024 5:13 AM EST) Sodium 139 133 - 145 mmol/L LAB CHEMISTRY METHOD 08/10/2024 1:06 PM [facility] Potassium 4.1 3.5 - 5.5 mmol/L LAB CHEMISTRY METHOD 08/10/2024 1:06 PM [facility] Chloride 105 96 - 110 mmol/L LAB CHEMISTRY METHOD 08/10/2024 1:06 PM [facility] CO2 23 21 - 32 mmol/L LAB CHEMISTRY METHOD 08/10/2024 1:06 PM [facility] Anion Gap 11 3 - 11 LAB CHEMISTRY METHOD 08/10/2024 1:06 PM [facility] Glucose 137(H) 70 - 100 mg/dL LAB CHEMISTRY METHOD 08/10/2024 1:06 PM [facility] BUN 10 5 - 25 mg/dL LAB CHEMISTRY METHOD 08/10/2024 1:06 PM [facility] Creatinine 0.88 0.70 - 1.30 mg/dL LAB CHEMISTRY METHOD 08/10/2024 1:06 PM [facility] eGFR 105 >=60 mL/min/1. 73m2 LAB CHEMISTRY METHOD 08/10/2024 1:06 PM [facility] Comment:Calculation based on the??Chronic Kidney Disease Epidemiology Collaboration (CKD-EPI) equation refit??without adjustment for race. BUN/Creatinine Ratio 11.4 LAB CHEMISTRY METHOD 08/10/2024 1:06 PM [facility] Calcium 8.9 8.5 - 10.5 mg/dL LAB CHEMISTRY METHOD 08/10/2024 1:06 PM [facility] Blood Venous blood specimen / Unknown Venipuncture / Unknown 08/10/2024 5:13 AM EST 08/10/2024 10:52 AM EST us Panda Bundy MD LAB BLOOD ORDERABLES Final R esult [facility] [address] [place] [address], documented in this encounter Visit Diagnoses Diagnosis Type 2 diabetes mellitus without complications documented in this encounter Care Teams Accounting Manager Controller Relationship Specialty Start Date End Date Panda Bundy MD [address] [place] [address] PCP - General Family Medicine 08/15/24 documented as of this encounter
--- OUTSIDE RECORDS SUMMARY | 2024-12-14 16:49 | XMS_ITS | Encounter Summary ---
Author Organization [employer] Address [address] [place] [address] Care Team Providers Care Beach Lifeguard Name Role Phone Panda Bundy MD Primary Care Provider Encounter Details Date Type Department Care Team (Latest Contact Info) Description 09/02/2024 Lab Requisition [facility] - Main Lab [address] [place] [address] Panda Bundy MD [facility] [place] [address] Type 2 diabetes mellitus without [...] Procedure Name Priority Date/Time Associated Diagnosis Comments HEPATIC FUNCTION PANEL Routine 2024 7:06 AM EST Type 2 diabetes mellitus without complications (CMS/HCC) documented in this encounter Results * (ABNORMAL) Hepatic function panel (2024 7:06 AM EST) Total Protein 6.9 6.0 - 8.0 g/dL LAB CHEMISTRY METHOD 2024 12:29 PM EST [facility] Albumin 3.6 3.2 - 5.0 g/dL LAB CHEMISTRY METHOD 2024 12:29 PM EST [facility] Total Bilirubin 0.4 0.0 - 1.4 mg/dL LAB CHEMISTRY METHOD 2024 12:29 PM EST [facility] Bilirubin, Direct <0.1 0.0 - 0.3 mg/dL LAB CHEMISTRY METHOD 2024 12:29 PM [facility] Bilirubin, Indirect LAB CHEMISTRY METHOD 2024 12:29 PM [facility] Comment:Unable to calculate Indirect Bilirubin. ALT (SGPT) 116(H) 10 - 60 unit/L LAB CHEMISTRY METHOD 2024 12:29 PM EST [facility] AST (SGOT) 56(H) 10 - 42 unit/L LAB CHEMISTRY METHOD 2024 12:29 PM [facility] Alkaline Phosphatase 52 42 - 121 unit/L LAB CHEMISTRY METHOD 2024 12:29 PM [facility] Blood Venous blood specimen / Unknown Venipuncture / Unknown 2024 7:06 AM EST 2024 10:33 AM EST us Panda Bundy MD LAB BLOOD ORDERABLES Final R esult [facility] [address] [place] [address], documented in this encounter Visit Diagnoses Diagnosis Type 2 diabetes mellitus without complications documented in this encounter Care Teams Beach Lifeguard Relationship Specialty Start Date End Date Panda Bundy MD [address] [place] [address] PCP - General Family Medicine 08/15/24 documented as of this encounter
--- OUTSIDE RECORDS SUMMARY | 2024-12-14 16:49 | XMS_ITS | Encounter Summary ---
Author Organization [employer] Address [address] [place] [address] Care Team Providers Care Production Honing Machine Operator Name Role Phone Panda Bundy MD Primary Care Provider [phone] Encounter Details Date Type Department Care Team (Latest Contact Info) Description 11/14/2024 Lab Requisition [facility] - Main Lab [address] [facility] [employer] [address] Panda Bundy MD [facility] [place] [address] Type 2 diabetes mellitus without [...] documented in this encounter Results * (ABNORMAL) Hemoglobin A1c (11/14/2024 6:12 AM EDT) Hemoglobin A1C 8.1(H) <6.5 % LAB CHEMISTRY METHOD 11/14/2024 1:49 PM EDT [facility] Mean Bld Glu Estim. 186 mg/dL LAB CHEMISTRY METHOD 11/14/2024 1:49 PM EDT [facility] Blood Venous blood specimen / Unknown Venipuncture / Unknown 11/14/2024 6:12 AM EDT 11/14/2024 11:05 AM EDT Panda Bundy MD LAB BLOOD ORDERABLES Final R esult [facility] ([facility]) [facility] [address] [place] [address], documented in this encounter Visit Diagnoses Diagnosis Type 2 diabetes mellitus without complications documented in this encounter Care Teams Production Honing Machine Operator Relationship Specialty Start Date End Date Panda Bundy MD [facility] [place] [address] PCP - General Family Medicine 08/15/24 documented as of this encounter
--- OUTSIDE RECORDS SUMMARY | 2024-12-14 16:49 | XMS_ITS | Encounter Summary ---
Author Organization [employer] Address [address] [place] [address] Care Team Providers Care Biology Laboratory Assistant Name Role Phone Panda Bundy MD Primary Care Provider [phone] Encounter Details Date Type Department Care Team (Late st Contact Info) Description 08/16/2024 Lab Requisition [facility] - Main Lab [address] [place] [address] Panda Bundy MD [address] [place] [address] Essential (primary) hypertension; Hyperlipidemia, unspecified; Unspecified dementia, unspecified severity, without behavioral disturbance, psychotic disturbance, mood disturbance, and anxiety (CMS/HCC) Social History Tobacco Use Types Packs/Day [...] Associated Diagnosis Comments HEPATIC FUNCTION PANEL Routine 08/17/2024 5:38 AM EST Essential (primary) hypertension Hyperlipidemia, unspecified Unspecified dementia, unspecified severity, without behavioral disturbance, psychotic disturbance, mood disturbance, and anxiety (CMS/HCC) documented in this encounter Results * (ABNORMAL) Hepatic function panel (08/17/2024 5:38 AM EST) Total Protein 6.8 6.0 - 8.0 g/dL LAB CHEMISTRY METHOD 08/17/2024 10:55 AM EST [facility] Albumin 3.8 3.2 - 5.0 g/dL LAB CHEMISTRY METHOD 08/17/2024 10:55 AM EST [facility] Total Bilirubin 0.5 0.0 - 1.4 mg/dL LAB CHEMISTRY METHOD 08/17/2024 10:55 AM EST [facility] Bilirubin, Direct 0.1 0.0 - 0.3 mg/dL LAB CHEMISTRY METHOD 08/17/2024 10:55 AM [facility] Bilirubin, Indirect 0.4 0.0 - 1.1 mg/dL LAB CHEMISTRY METHOD 08/17/2024 10:55 AM [facility] LAB ALT (SGPT) 104(H) 10 - 60 unit/L LAB CHEMISTRY METHOD 08/17/2024 10:55 AM [facility] AST (SGOT) 53(H) 10 - 42 unit/L LAB CHEMISTRY METHOD 08/17/2024 10:55 AM [facility] Alkaline Phosphatase 55 42 - 121 unit/L LAB CHEMISTRY METHOD 08/17/2024 10:55 AM [facility] Blood Venous blood specimen / Unknown Venipuncture / Unknown 08/17/2024 5:38 AM EST 08/17/2024 9:47 AM EST us Panda Bundy MD LAB BLOOD ORDERABLES Final R esult [facility] [address] [place] [address], documented in this encounter Visit Diagnoses Diagnosis Essential (primary) hypertension Unspecified essential hypertension Hyperlipidemia, unspecified Unspecified dementia, unspecified severity, without behavioral disturbance, psychotic disturbance, mood disturbance, and anxiety (CMS/HCC) documented in this encounter Care Teams Biology Laboratory Assistant Relationship Specialty Start Date End Date Panda Bundy MD [address] [place] [address] PCP - General Family Medicine 08/15/24 documented as of this encounter
--- OUTSIDE RECORDS SUMMARY | 2024-12-14 16:49 | XMS_ITS | Encounter Summary ---
Author Organization [employer] Address [address] [place] [address] Care Team Providers Care Draw Bench Operator Helper Name Role Phone Panda Bundy MD Primary Care Provider [phone] Encounter Details Date Type Department Care Team (Late st Contact Info) Description 08/27/2024 Lab Requisition [facility] - Main Lab [address] [place] [address] Panda Bundy MD [address] [place] [address] Unspecified viral hepatitis C without hepatic coma; Hyperlipidemia, unspecified Social History Tobacco Use Types Packs/Day Years [...] Procedure Name Priority Date/Time Associated Diagnosis Comments LIPID PANEL WITH REFLEX TO DIRECT LDL Routine 08/29/2024 4:56 AM EST Unspecified viral hepatitis C without hepatic coma Hyperlipidemia, unspecified HEPATIC FUNCTION PANEL Routine 08/29/2024 4:56 AM EST Unspecified viral hepatitis C without hepatic coma Hyperlipidemia, unspecified documented in this encounter Results * (ABNORMAL) Hepatic function panel (08/29/2024 4:56 AM EST) Total Protein 7.1 6.0 - 8.0 g/dL LAB CHEMISTRY METHOD 08/29/2024 10:39 AM EST [facility] Albumin 4.0 3.2 - 5.0 g/dL LAB CHEMISTRY METHOD 08/29/2024 10:39 AM EST [facility] Total Bilirubin 0.4 0.0 - 1.4 mg/dL LAB CHEMISTRY METHOD 08/29/2024 10:39 AM [facility] Bilirubin, Direct 0.1 0.0 - 0.3 mg/dL LAB CHEMISTRY METHOD 08/29/2024 10:39 AM [facility] Bilirubin, Indirect 0.3 0.0 - 1.1 mg/dL LAB CHEMISTRY METHOD 08/29/2024 10:39 AM [facility] ALT (SGPT) 125(H) 10 - 60 unit/L LAB CHEMISTRY METHOD 08/29/2024 10:39 AM [facility] AST (SGOT) 79(H) 10 - 42 unit/L LAB CHEMISTRY METHOD 08/29/2024 10:39 AM [facility] Alkaline Phosphatase 54 42 - 121 unit/L LAB CHEMISTRY METHOD 08/29/2024 10:39 AM [facility] Blood Venous blood specimen / Unknown Venipuncture / Unknown 08/29/2024 4:56 AM EST 08/29/2024 9:44 AM EST Panda Bundy MD LAB BLOOD ORDERABLES Final R esult [facility] [address] [place] [address], * (ABNORMAL) Lipid panel with reflex to direct LDL (08/29/2024 4:56 AM EST) Cholesterol 219(H) 0 - 200 mg/dL LAB CHEMISTRY METHOD 08/29/2024 10:40 AM [facility] Triglycerides 384(H) 0 - 150 mg/dL LAB CHEMISTRY METHOD 08/29/2024 10:40 AM [facility] HDL 32(L) >=40 mg/dL LAB CHEMISTRY METHOD 08/29/2024 10:40 AM [facility] LDL Calculated 110(H) 0 - 100 mg/dL LAB CHEMISTRY METHOD 08/29/2024 10:40 AM EST [facility] VLDL Cholesterol Kiran 76.8 mg/dL LAB CHEMISTRY METHOD 08/29/2024 10:40 AM EST [facility] Non HDL Chol. (LDL+VLDL) 187(H) <145 mg/dL LAB CHEMISTRY METHOD 08/29/2024 10:40 AM EST [facility] Chol/HDL Ratio 6.8(H) 0.0 - 4.4 LAB CHEMISTRY METHOD 08/29/2024 10:40 AM EST [facility] Blood Venous blood specimen / Unknown Venipuncture / Unknown 08/29/2024 4:56 AM EST 08/29/2024 9:44 AM EST us Panda Bundy MD LAB BLOOD ORDERABLES Final R esult [facility] [address] [place] [address], documented in this encounter Visit Diagnoses Diagnosis Unspecified viral hepatitis C without hepatic coma Hyperlipidemia, unspecified documented in this encounter Care Teams Draw Bench Operator Helper Relationship Specialty Start Date End Date Panda Bundy MD [address] [place] [address] PCP - General Family Medicine 08/15/24 documented as of this encounter
== END 2024-12-14 18:57 | disposition home or self-care (01) ==
PROVIDERS: PCP Emergency Medicine; Visit Provider Nurse Practitioner Family
DX: D12.6 Benign neoplasm of colon, unspecified (principal); Z98.890 Other specified postprocedural states
CPT/HCPCS: 99213

== ENCOUNTER → 2024-12-14 14:35 | Outpatient (BNVA) | payer MEDICAID, SELFPAY | PROVIDERS: PCP Emergency Medicine; Visit Provider Nurse Practitioner Family | DX: D12.6 Benign neoplasm of colon, unspecified (principal); Z98.890 Other specified postprocedural states | CPT/HCPCS: 99212 ==